=== PATIENT | male | born 2005 | race Caucasian/White ===

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

== ENCOUNTER 2024-12-30 13:05 | Inpatient (IN) | payer OTHER, SELFPAY ==
--- NOTE | ~2024-12-30 | CT_ITS ---
CLINICAL HISTORY: left spontaneous pneumothorax, persistent leak CT chest with contrast Comparison: Chest x-rays 01/02/2025, 01/01/2025 Findings: Small left apical pneumothorax noted. Medial left apical chest tube. Left upper and lower lobe ground-glass consolidation. Differential includes pneumonia as well as contusion. No significant parenchymal abnormality on right. No significant mediastinal adenopathy. No significant free pleural fluid. No significant focal bony abnormalities. Impression: Small left apical pneumothorax Ground-glass left upper and lower lobe consolidation Question pneumonia versus contusion, please correlate This document has been electronically signed by: Jesse Dowd MD on 01/02/2025 22:06:24
--- NOTE | ~2024-12-30 | XR_ITS ---
EXAMINATION: XR CHEST 1 VIEW HISTORY: f/u left blebectomy COMPARISON: Comparison is made with the prior examination dated 01/03/2025. FINDINGS: Two AP portable views of the chest performed at 7:20 AM are submitted. A left-sided chest tube is unchanged in position. The previously seen left pneumothorax is smaller. Postsurgical changes are again noted at the left lung apex and at the left lung base. There has been improved aeration of the left midlung zone since the prior study . The right lung is clear. No pleural effusion. The heart is normal in size. The bones are intact. XR/XR chest 1V IMPRESSION: Left chest tube unchanged in position. Interval decrease in size of the left pneumothorax. Improved aeration of the left midlung zone. Electronically signed by: Tone Waters MD 01/04/2025 07:53 AM EDT
--- NOTE | ~2024-12-30 | XR_ITS ---
EXAMINATION: XR CHEST 1 VIEW HISTORY: f/u left pneumothorax COMPARISON: Comparison is made with the prior examination dated 12/31/2024. FINDINGS: A single AP portable view of the chest performed at 8:32 AM is submitted. A left-sided chest tube is again seen in place. There is a trace left apical pneumothorax without change. There is patchy groundglass opacity in the central left lung which may be inflammatory in nature. The right lung is clear. The heart is normal in size. The bones are intact. XR/XR chest 1V IMPRESSION: 1. Left chest tube in place. Tiny left apical pneumothorax without change. 2. Patchy groundglass opacity in the central left lung which may be inflammatory in nature. Electronically signed by: Tnoe Waters MD 01/01/2025 09:02 AM EDT
--- NOTE | ~2024-12-30 | XR_ITS ---
EXAMINATION: XR CHEST 1 VIEW HISTORY: f/u left pneumo on water seal COMPARISON: Comparison is made with the prior examination performed earlier in the day at 8:32 AM. FINDINGS: A single AP portable view of the chest performed at 12:33 PM is submitted. A left-sided chest tube is again seen in place. There is a small left apical pneumothorax which is slightly larger than on the prior study. Patchy airspace opacity in the left midlung zone suspicious for pneumonia. There is no pleural effusion, pneumothorax, or pulmonary vascular congestion. The heart is normal in size. The bones are intact. XR/XR chest 1V IMPRESSION: 1. Left chest tube in place. Small left apical pneumothorax, slightly larger than on the prior study. 2. Airspace opacity in the left midlung zone, suspicious for pneumonia. Electronically signed by: Tone Waters MD 01/01/2025 01:08 PM EDT
--- NOTE | ~2024-12-30 | XR_ITS ---
CLINICAL HISTORY: Left pneumothorax 1 view chest x-ray Comparison: 12/30/2024 Findings: Left chest tube remains in position with near-complete resolution of pneumothorax. The exam is otherwise unchanged. IMPRESSION: 1. Improved appearance of the chest. This document has been electronically signed by: Quoc Gary MD on 12/31/2024 06:24:37
--- NOTE | ~2024-12-30 | XR_ITS ---
CLINICAL HISTORY: pigtail placement, eval for placement Single view of the chest. COMPARISON: XR chest dated 12/30/24 at 13:36 EDT FINDINGS: Interval insertion of the pigtail catheter along the left midlung. There has been re-expansion of the left lung with now small left apical pneumothorax. Areas of increased density within the left lung likely represent re-expansion edema. Right lung is clear. Small calcified granulomas present. No pleural effusion. No fracture identified. IMPRESSION: 1. Small residual left apical pneumothorax with pigtail catheter now in place. 2. Opacification within the left mid and lower lung favored to represent re-expansion edema. This document has been electronically signed by: Ajith Reddy MD on 12/30/2024 16:56:47
--- NOTE | ~2024-12-30 | XR_ITS ---
EXAMINATION: XR CHEST 1 VIEW HISTORY: f/u left blebectomy COMPARISON: Comparison is made with the prior examination dated 01/02/2025. FINDINGS: A single AP portable view of the chest performed at 10:02 AM is submitted. The previously seen side of pigtail catheter has been replaced with a large bore chest tube. There is a small to moderate left pneumothorax. A suture line is seen at the left lung apex. There are surgical clips at the lung base. Patchy airspace opacity is again seen in the left midlung zone. The right lung is clear. There is no pleural effusion. The heart is normal in size. The bones are intact. XR/XR chest 1V IMPRESSION: Postsurgical changes in the left lung with a large bore chest tube in place. Small to moderate pneumothorax. Patchy airspace opacity in the left midlung zone persists and may represent pneumonia. Electronically signed by: Tone Waters MD 01/03/2025 10:23 AM EDT
--- NOTE | ~2024-12-30 | XR_ITS ---
CLINICAL HISTORY: chest pain Two views of the chest. COMPARISON: None FINDINGS: Large left pneumothorax with complete collapse in the left lung. No midline shift. Normal heart size. No right-sided pleural effusion. No right-sided consolidation. No fracture identified. IMPRESSION: 1. Large left pneumothorax with complete collapse of the left lung. No midline shift. This document has been electronically signed by: Ajith Reddy MD on 12/30/2024 14:54:29
--- NOTE | ~2024-12-30 | XR_ITS ---
EXAMINATION: XR CHEST CLINICAL INFORMATION: s/p chest tube removal COMPARISON: Earlier same day at 7:20 AM. TECHNIQUE: AP view of the chest was obtained. FINDINGS: Left chest tube has been removed. The cardiac, hilar, and mediastinal contours are normal. Surgical clips project over the left heart border. Moderate to large size left pneumothorax after chest tube removal. Apical pleural to pleural radiation measures approximately 6.6 cm. Stable line seen in the partially collapsed left lung apex. Right lung is clear without pneumothorax. No effusion seen. Minimal left chest wall subcutaneous emphysema. XR/XR chest 1V IMPRESSION: 1. Left chest tube has been removed. There is a new moderate to large sized left pneumothorax. Findings discussed with Aminata Jackson PA-C via secure text with findings understood at 10:46 AM, 01/04/2025. Electronically signed by: Adolfo Villaseñor MD 01/04/2025 10:47 AM EDT
--- NOTE | ~2024-12-30 | XR_ITS ---
CLINICAL HISTORY: f u left pneumothorax 1 view chest x-ray Comparison: CR/SR - XR CHEST 1V - 01/01/25 12:33 EDT Findings: Small left apical pneumothorax is similar to prior exam. Left perihilar opacities are noted, similar to prior exam. Left chest tube is unchanged in position. The heart is normal in size. No acute fracture. IMPRESSION: 1. Small left apical pneumothorax and left perihilar opacities, similar to prior exam. This document has been electronically signed by: Nava Donahue on 01/02/2025 07:54:19
--- NOTE | ~2024-12-30 | XR_ITS ---
EXAMINATION: XR CHEST CLINICAL INFORMATION: f/u left pneumothorax COMPARISON: Earlier same day. TECHNIQUE: Frontal view of the chest was obtained. FINDINGS: Slightly smaller medium to large size left pneumothorax with apical pleural separation of 5.6 cm (previously 6.6 cm). Right lung remains clear. Remainder of the exam is unchanged. XR/XR chest 1V IMPRESSION: Slightly smaller moderate to large sized left pneumothorax. Electronically signed by: Adolfo Villaseñor MD 01/04/2025 02:32 PM EDT
--- NOTE | 2024-12-30 13:07 | ECG_ITS ---
Test Reason : chest pain Blood Pressure : */* mmHG Vent. Rate : 101 BPM Atrial Rate : 101 BPM P-R Int : 140 ms QRS Dur : 82 ms QT Int : 326 ms P-R-T Axes : 76 83 64 degrees QTcB Int : 422 ms Sinus tachycardia Right atrial enlargement Borderline ECG No previous ECGs available Referred By: Generic ED Physician Electronically Signed By: CHACHO HAMM MD
--- NOTE | 2024-12-30 13:28 | ED_ITS ---
HPI - General Adult General Chief complaint: Chest Pain Stated complaint: chest pain to shoulder Time Seen by Provider: 12/30/24 13:49 Source: patient and family Mode of arrival: ambulatory Limitations: no limitations History of Present Illness ED Provider: Whitney Owen APRN HPI narrative: This is a 19-year-old male with no known medical history who presents to the ER with complaints of sudden onset left-sided chest pain with radiation to his left shoulder since 16:00 yesterday. Patient reports he was talking to his girlfriend and got up to walk and felt sudden pain in his left chest. Pain has continued since yesterday. No shortness of breath. No cough or fever. No history of same. Patient does smoke cigarettes/vape daily. Related Data Home Medications ?Medication ?Instructions ?Recorded ?Confirmed No Known Home Meds 12/30/24 12/30/24 Allergies Allergy/AdvReac Type Severity Reaction Status Date / Time No Known Allergies Allergy Verified 12/30/24 13:31 Review of Systems 2 Review of Systems: Yes all other systems are reviewed and are negative Constitutional: Constitutional: Reports no additional constitutional complaints, Denies body ache(s), Denies chills, Denies fever(s), Denies headache(s) and Denies weakness Eyes: Eyes: Reports no additional eye complaints and Denies change in vision ENT: Reports system reviewed and no additional complaints, except as documented, Denies dizziness, Denies headache(s), Denies nasal congestion, Denies nasal discharge and Denies neck pain Cardiovascular: Cardiovascular: Reports no additional cardiovascular complaints, Reports chest pain, Denies leg edema and Denies dyspnea Respiratory: Respiratory: Reports no additional respiratory complaints, Denies cough and Denies dyspnea Gastrointestinal: Gastrointestinal: Reports no additional gastrointestinal complaints, Denies abdominal pain, Denies diarrhea, Denies nausea and Denies vomiting Genitourinary: Genitourinary: Denies urinary incontinence Musculoskeletal: Musculoskeletal: Reports no additional musculoskeletal complaints, Denies back pain, Denies arthralgias, Denies joint swelling, Denies neck pain, Denies numbness and Denies tingling Integumentary/Breasts: Skin/Breast: Reports system reviewed and no additional complaints, except as docu and Denies rash Neurologic: Reports system reviewed and no additional complaints, except as documented, Denies Abnormal speech present, Denies dizziness, Denies headache(s), Denies numbness, Denies tingling and Denies weakness [facility] Past Medical History Attestation statement: The following information was validated with the patient. Source: old records reviewed and nursing notes reviewed Medical History No known health problems Family History Family History Mother Hypertension No family history of mental disorder Father No family history of mental disorder Diabetes Maternal Grandfather Lymphoma No family history of mental disorder Social History Social History Housing: House Patient Tobacco Use Status: Never used Tobacco Smoked in Last 30 Days: No e-Cigarette/Vaping Use: Never Used Use of substances other than those prescribed or required for medical reasons: Yes Substance Use Type: Marijuana Substance Use Frequency: Daily Last Used Substance: Hours (ago) Any prior treatment program specific to substance use: No Advance Directives: No Advance Directives Information Provided: Yes service: No Current occupational status: employed Current occupation: Construction Current occupational exposures/hazards: Yes Cognitive needs: No Hearing needs: No Vision needs: No Physical Exam ED Vital Signs: Vital Signs - 24 hr 12/30/24 13:29 Temperature 98.5 F Pulse Rate 94 Respiratory Rate 18 Blood Pressure 127/74 Pulse Oximetry 93 Oxygen Delivery Method Room Air BMI result Body Mass Index 17.5 Const General: cooperative, healthy appearing, comfortable and no acute distress Orientation/consciousness: patient oriented x3 Limitations: no limitations HENMT Head: Yes normal to inspection Ears: hearing grossly normal bilaterally and TM's normal bilaterally General nose exam: Normal external nose present Face and sinus: Yes normal facial exam Mouth: Normal oral and palatal mucosa present Throat: Yes posterior oropharynx normal, Yes tonsils normal and Yes uvula midline Eyes General: appearance normal, both eyes and all related structures Pupils: Equal, round and reactive pupils present Neck Neck: Yes normal visual inspection, Yes full ROM, Yes no lymphadenopathy and Yes no meningeal signs Chest Chest palpation & inspection: normal inspection of the chest Resp Other: right clear, left absent Effort & Inspection: normal respiratory effort Cardio Rate: regular rate Rhythm: regular rhythm Peripheral pulses: Peripheral pulses 2+ throughout GI Inspection: Yes normal to inspection Palpation (GI): Soft to palpation and nontender Auscultation: normal bowel sounds Back/Spine/Pelvis Thoracic/Lumbar Spine: thoracic and lumbar spine normal to inspection Skin General skin exam: no rashes or lesions noted Neuro General: patient oriented x3, no meningeal signs, no focal motor deficits and normal sensation to monofilament Cranial nerves: Yes Equal, round and reactive pupils present Cognition (Neuro): normal cognition Speech: No Abnormal speech present Gait exam (Neuro): Normal gait present Motor exam (neuro): 5/5 motor strength present throughout Extrem General: Yes normal to inspection Course Course Course Narrative: This is a rapid medical exam performed by Ana Bass NP: Additional HPI, ROS, PE not included below will be deferred to primary provider. 12/30/24 13:29 Patient is a 19-year-old male with history of smoker, anxiety and depression presenting to the ED with complaint of sudden onset chest pain radiating to left arm as well as associated difficulty concentrating. Pain with inspiration. Denies any recent systemic symptoms. Rates current pain at 3/10. Plan: EKG, labs Reevaluation(s) Reevaluation #1: [id number]-Dr Sanchez arrived for pigtail placement. See procedure note by Dr. Sanchez. He will admit the patient Medications Administered Discontinued Medications Generic Name Dose Route Start Last Admin Trade Name Freq PRN Reason Stop Dose Admin Hydromorphone HCl 0.5 mg 12/30/24 14:39 12/30/24 14:49 Hydromorphone Hcl 1 Mg/Ml Syringe IVPUSH 12/30/24 14:40 0.5 mg ONCE ONE Administration Protocol Sodium Chloride 1,000 mls @ 999 mls/hr 12/30/24 14:05 12/30/24 15:20 Ns IV 12/30/24 15:05 Infused .Q1H1M STA Infusion Lidocaine HCl 20 ml 12/30/24 14:39 12/30/24 15:21 Lidocaine Hcl 1 % Mpf 5 Ml Vial SUBCUT 12/30/24 14:40 20 ml ONCE ONE Administration Lidocaine HCl 20 ml 12/30/24 14:39 12/30/24 15:21 Lidocaine Hcl 1 % Mpf 5 Ml Vial SUBCUT 12/30/24 14:40 20 ml ONCE ONE Administration Lorazepam 1 mg 12/30/24 14:05 12/30/24 14:14 Lorazepam 2 Mg/Ml Vial IVPUSH 12/30/24 14:06 1 mg ONCE ONE Administration Medical Decision Making Medical Decision Making [facility] Narrative: This is a 19-year-old male with no known medical history who presents to the ER with complaints of sudden onset left-sided chest pain with radiation to his left shoulder since 16:00 yesterday. Patient reports he was talking to his girlfriend and got up to walk and felt sudden pain in his left chest. Pain has continued since yesterday. No shortness of breath. No cough or fever. No history of same. Patient does smoke cigarettes/vape daily. Absent BS left side Right clear RA saturation 93% Will obtain labs, EKG, CXR, viral testing Differential Diagnosis Differential Diagnoses: The differential diagnosis associated with the presentation includes PTX Low suspician for PNA, ACS, dissection Admission/Observation Consideration of admission/observation: Escalation of care including admission/observation considered See course of care Consult Healthcare Provider Management of the patient was discussed with: Forestry Fire Aide Liane LESLIE-Spoke to thoracic (Dr Sanchez) at 1405. He will come in to see patient Lab Data [facility] Lab Attestation statement: I reviewed the patient's lab results. 12/30/24 14:08 12/30/24 14:08 Labs: Lab Results 12/30/24 12/30/24 Range/Units 14:07 14:08 WBC 10.4 (4.8-10.8) X10*3/uL RBC 5.41 (4.60-5.80) X10*6/uL Hgb 16.4 (14.0-18.0) g/dl Hct 46.7 (42.0-52.0) % MCV 86.3 (80.0-98.0) fL MCH 30.3 (27.0-33.0) pg MCHC 35.1 (31.0-36.0) g/dl RDW 12.3 (11.0-16.0) % Plt Count 250 (160-400) X10*3/uL MPV 9.2 L (9.4-12.4) fL Immature Gran % (Auto) 0.2 (0.0-0.4) % Neut % (Auto) 81.4 H (45-73) % Lymph % (Auto) 12.0 L (20-40) % Barrow % (Auto) 6.2 (2-11) % Eos % (Auto) 0.1 (0-4) % Baso % (Auto) 0.1 (0-2) % Lymph # (Auto) 1.3 (1.2-4.9) X10*3/uL Barrow # (Auto) 0.7 (0.1-1.2) X10*3/uL Eos # (Auto) 0.0 (0.0-0.4) X10*3/uL Baso # (Auto) 0.0 (0.0-0.2) X10*3/uL Abs Immat Gran (auto) 0.02 (0.00-0.03) X10*3/uL Absolute Neuts (auto) 8.5 H (2.0-8.3) x10*3/uL Absolute Nucleated RBC 0.000 (0.0-0.012) X10*3/uL Nucleated RBC % (auto) 0.0 (0.0-0.2) /100WBC PT 13.4 H (10.9-12.4) SEC INR 1.2 H (0.9-1.1) Sodium 142 (135-145) mmol/L Potassium 4.0 (3.3-5.1) mmol/L Chloride 107 (96-108) mmol/L Carbon Dioxide 21 L (22-29) mmol/L Anion Gap 18 (12-20) BUN 13 (9-16) mg/dL Creatinine 0.88 (0.5-1.4) mg/dL Estim Creat Clear Calc 104.9 Estimated GFR > 60 Random Glucose 133 H (60-115) mg/dL Calcium 9.8 (8.4-10.2) mg/dL Total Bilirubin 1.1 H (0.0-1.0) mg/dL AST 25 (5-37) U/L ALT 20 (0-40) U/L Alkaline Phosphatase 71 (39-117) U/L Troponin I High Sens < 2.7 (<3.5-35.0) ng/L Total Protein 7.5 (6.5-8.0) g/dL Albumin 4.7 (3.5-5.0) g/dL Influenza Type A (PCR) NEGATIVE (Negative) Influenza Type B (PCR) NEGATIVE (Negative) RSV RNA Qual (PCR) NEGATIVE (Negative) SARS-CoV-2 RNA (RT-PCR) NEGATIVE (Negative) Independent Interpretation I performed an independent interpretation of an: EKG and Plain X-Ray Interpretation: I independently viewed the EKG which shows sinus tachycardia with a rate of 101, normal NV, normal QRS, normal QT I independently viewed the x-ray and agree with the radiology report Radiology Impression Discussion of test interpretation with radiology: I have reviewed the radiologist's reading. Radiologist Impression: [address] [address] XRay Report Signed with Addenda Patient: Adal Peng MR#: [id number] : 2005 Acct:[id number] Age/Sex: 19 / M ADM Date: 12/30/24 Loc: .ED Attending Dr: Ordering Physician: Nettie Bass NP Date of Service: 12/30/24 Procedure(s): XR chest 2V Accession Number(s): [id number] cc: Nettie Bass BURRER MARKER [employer]LE; Concetta Chirinos TECHNOLOGY SALES REPRESENTATIVE~ ADDENDUMThis document has been electronically signed by: Ajith Reddy MD on 12/30/2024 14:54:29 ADDENDUM: This report was discussed with RUSTY HOPKINS / ELIJAH on Dec 30, 2024 14:57:00 EDT. This document has been electronically signed by: Jade Santos on 12/30/2024 14:57:58 Addendum Dictated By: Ajith Reddy MD Addendum Signed By: <Electronically signed by Ajith Reddy MD in OV> 12/30/24 145 Addendum Cosigned By: DD/ TD/TT: 12/30/24 CLINICAL HISTORY: chest pain Two views of the chest. COMPARISON: None FINDINGS: Large left pneumothorax with complete collapse in the left lung. No midline shift. Normal heart size. No right-sided pleural effusion. No right-sided consolidation. No fracture identified. IMPRESSION: 1. Large left pneumothorax with complete collapse of the left lung. No midline shift. Critical Care Time Critical Care Time Critical Care Time: Yes Total Critical Care Time: 60 Attestation: Large left pneumothorax requiring consultation with specialists, admission for further management as well as pigtail placement, discussion with family at bedside Discharge Plan Discharge Clinical Impression: Pneumothorax Patient Disposition: Admitted As Inpatient Print Language: [place]ican
[2024-12-30 13:29] VITALS: BP 127/74; PULSE 94; RESP 18; TEMP 36.9; O2SAT 93; BMI 17.5
--- OUTSIDE RECORDS SUMMARY | 2024-12-30 13:54 | XMS_ITS | Encounter Summary ---
Author Organization [facility] Address [address] [place] [address] Phone Care Team Providers Care Pole Lift Operator Name Role Phone Quoc Thomas MD Primary Care Provider [phone] Encounter Details Date Type Department Care Team (Late st Contact Info) Description 08/23/2016 Documentation [facility] [place] Family Medicine [address] [place], [place] [id number] Family Medicine, Physician [address] [place], [place] [address] Social History Tobacco Use Types Packs/Day Years Used Date Smoking Tobacco: Never Assessed Sex and Gender Information Value Date Recorded Sex Assigned at Male 12/03/2020 1:50 PM EDT Legal Sex Male 4:40 PM EDT Gender Identity Male 12/03/2020 1:50 PM EDT Sexual Orientation Straight 12/03/2020 1: 50 PM EDT documented as of this encounter Plan of Treatment Not on file documented as of this encounter Visit Diagnoses Not on filedocumented in this encounter Care Teams Pole Lift Operator Relationship Specialty Start Date End Date Quoc Thomas MD [address] [place] [address] [place] [address] PCP - General Pediatrics 05/18/18 11/15/23 documented as of this encounter
--- OUTSIDE RECORDS SUMMARY | 2024-12-30 13:54 | XMS_ITS | Encounter Summary ---
Author Organization [facility] Address [address] [place] [address] Phone Care Team Providers Care Refrigeration Person Name Role Phone Quoc Thomas MD Primary Care Provider [phone] Encounter Details Date Type Department Care Team (Late st Contact Info) Description 08/23/2016 Documentation [facility] [place] [address] [place], [place] [phone] Family Medicine, Physician [address] [place], [place] [address] Social History Tobacco Use Types Packs/Day Years [...] on filedocumented in this encounter Care Teams Refrigeration Person Relationship Specialty Start Date End Date Quoc Thomas MD [address] [place] [address] [place] [address] PCP - General Pediatrics 05/18/18 11/15/23 documented as of this encounter
--- OUTSIDE RECORDS SUMMARY | 2024-12-30 13:54 | XMS_ITS | Encounter Summary ---
Author Organization [facility] Address [address] [place] [address] Phone Care Team Providers Care Studio Operations Engineer In Charge Name Role Phone Quoc Thomas MD Primary Care Provider Encounter Details Date Type Department Care Team (Late st Contact Info) Description 05/05/2017 Conversion Encounter [facility] [place] [address] [place] [address] Social History Tobacco Use Types Packs/Day Years [...] on filedocumented in this encounter Care Teams Studio Operations Engineer In Charge Relationship Specialty Start Date End Date Quoc Thomas MD [address] [place] [address] PCP - General Pediatrics 05/18/18 11/15/23 documented as of this encounter
--- OUTSIDE RECORDS SUMMARY | 2024-12-30 13:54 | XMS_ITS | Encounter Summary ---
Author Organization [facility] Address [address] [place] [address] Phone Care Team Providers Care Pencil Maker Name Role Phone Quoc Thomas MD Primary Care Provider Encounter Details Date Type Department Care Team (Late st Contact Info) Description 05/01/2015 Documentation [facility] [place] Family Medicine [address] [place], [place] [phone] Family Medicine, Physician [address] [place], [place] [address] Social History Tobacco Use Types Packs/Day Years [...] on filedocumented in this encounter Care Teams Pencil Maker Relationship Specialty Start Date End Date Quoc Thomas MD [address] [place] [address] [place] [address] PCP - General Pediatrics 05/18/18 11/15/23 documented as of this encounter
--- OUTSIDE RECORDS SUMMARY | 2024-12-30 13:54 | XMS_ITS | Encounter Summary ---
Author Organization [facility] Address [address] [place] [address] Phone Care Team Providers Care Peanut Grader Name Role Phone Quoc Thomas MD Primary Care Provider [phone] Encounter Details Date Type Department Care Team (Late st Contact Info) Description 02/03/2012 Documentation [facility] [place] Family Medicine [address] [place], [place] [phone] Family Medicine, Physician [address] [place], [place] [address] Social History Tobacco Use Types Packs/Day Years [...] on filedocumented in this encounter Care Teams Peanut Grader Relationship Specialty Start Date End Date Quoc Thomas MD [address] [place] [address] [place] [address] PCP - General Pediatrics 05/18/18 11/15/23 documented as of this encounter
--- OUTSIDE RECORDS SUMMARY | 2024-12-30 13:54 | XMS_ITS | Encounter Summary ---
Author Organization [facility] Address [address] [place] [address] Phone Care Team Providers Care Bobj Developer Name Role Phone Quoc Thomas MD Primary Care Provider [phone] Encounter Details Date Type Department Care Team (Late st Contact Info) Description 02/03/2012 Documentation [facility] [place] Family Medicine [address] [place], [place] [phone] Family Medicine, Physician [address] [place], [place] [address] Social History Tobacco Use Types Packs/Day Years [...] on filedocumented in this encounter Care Teams Bobj Developer Relationship Specialty Start Date End Date Quoc Thomas MD [address] [place] [address] [place] [address] PCP - General Pediatrics 05/18/18 11/15/23 documented as of this encounter
--- OUTSIDE RECORDS SUMMARY | 2024-12-30 13:54 | XMS_ITS | Encounter Summary ---
Author Organization [facility] Address [address] [place] [address] Phone Care Team Providers Care Program Specialist Name Role Phone Quoc Thomas MD Primary Care Provider [phone] Encounter Details Date Type Department Care Team (Late st Contact Info) Description 02/03/2012 Documentation [facility] [place] Family Medicine [address] [place], [place] [phone] Family Medicine, Physician [address] [place], [place] [address] Social History Tobacco Use Types Packs/Day Years [...] on filedocumented in this encounter Care Teams Program Specialist Relationship Specialty Start Date End Date Quoc Thomas MD [address] [place] [address] [place] [address] PCP - General Pediatrics 05/18/18 11/15/23 documented as of this encounter
--- OUTSIDE RECORDS SUMMARY | 2024-12-30 13:54 | XMS_ITS | Clinical Summary ---
Author Organization [facility] Address [address] [place] [address] Phone Care Team Providers Care Plant Mechanic Name Role Phone Unavailable Primary Care Provider Unavailabl e Allergies No known active allergies Medications No known medications Active Problems No known active problems Immunizations Immunization Administration Dates Next Due DTaP 5 02/12/2009, 6,2004,08/05,2004 HPV Vaccine 9 Valent 12/03/2020,08/20/2016 Hep A, ped/adol 08/20/2016,04/30/2015 Hep B, ped/adol 01/11/2005,2004,2004 Hib (HbOC) 08/06/2005, 5,2004,06/03 IPV 02/12/2009, 5,2004,06/03 Influenza, injectable, quadr ivalent, preservative free 12/03/2020 Influenza, injectable, trivalent 06/20/2009 MMR 02/12/2009,05/06/2005 Meningococcal Conj (Menactra) MCV4P 12/03/2020,1 10/21/2015 Pneumococcal Conjugate 08/06/2005,2004,2004,06/03 Tdap 08/20/2016 Varicella 02/12/2009,05/06/2005 Family History Relation Name Status Comments Brother 1 Alive Brother: Alive and well, Bipolar disorder, Alive and well, Alive and well Brother 2 Alive Brother: Alive and well, Bipolar disorder, Alive and well, Alive and well Brother 3 Alive Brother: Alive and well, Bipolar disorder, Alive and well, Alive and well Father Alive Father: D M Typ e I Mother Alive Mother: Alive a nd well Social History Tobacco Use Types Packs/Day Years Used Date Smoking Tobacco: Never Assessed Hunger/Food Answer Date Recorded In the last 12 months, did y ou or your family ever eat less than you felt you should because there wasn't enough money for food? No 12/03/2020 Stable Housing Answer Date Recorded Are you worried that in the next 2 months you may not have stable housing? No 12/03/2020 Transportation Concerns Answer Date Rec orded In the last 12 months, have you or your family ever had to go without healthcare because you didn't have a way to get there? No 12/03/2020 Hazards in Home Answer Date Recorded Think about the place you li ve. Do you have problems with any of the following? Pests (mice or roaches), mold, no/not working smoke detectors, water leaks, no window guards. No 2020 Financing Utilities Answer Date Recorde d In the last 12 months, has t he electric, gas, oil, or water company threatened to shut off your services in your home? No 12/03/2020 Safety at Home Answer Date Recorded Are you or your family worried about feeling saf e in your home? No 12/03/2020 Outside Support Answer Date Recorded Do you feel that you need mo re support from other people or programs to help you care for yourself or your family? No 12/03/2020 Understanding Health Concerns Answer Da te Recorded Do you need help understandi ng your or your child's healthcare needs (diagnosis, medications, plan, etc.)? No 12/03/2020 Financing Health Concerns Answer Date R ecorded In the last 12 months, was t here a time when your child needed to see a doctor or get medications or supplies but could not because of cost? No 12/03/2020 Missing School or Work Answer Date Hardik rded Did you or your child miss s chool or work because of a health problem that could have been avoided? No 12/03/2020 Sex and Gender Information Value Date Recorded Sex Assigned at Male 12/03/2020 1:50 PM EDT Legal Sex Male 4:40 PM EDT Gender Identity Male 12/03/2020 1:50 PM EDT Sexual Orientation Straight 12/03/2020 1: 50 PM EDT Last Filed Vital Signs Vital Sign Reading Time Taken Comments Blood Pressure 128/78 12/03/2020 1:29 PM EDT Pulse 85 12/03/2020 1:29 PM EDT Temperature 36.7 ??C (98.1 ??F) 12/03/2020 1:29 PM ED T Respiratory Rate - - Oxygen Saturation - - Inhaled Oxygen Concentration - - Weight 55.8 kg (123 lb) 12/03/2020 1:29 PM EDT Height 175.9 cm (5' 9.25 ) 12/03/2020 1:29 PM ED T Body Mass Index 18.03 12/03/2020 1:29 PM EDT Plan of Treatment Health Maintenance Due Date Last Done Comments Men B Vaccine (1 of 2 - Standard) 2020 Influenza Vaccines (#1) 2024 12/04/19, 09/26/2020, 06/20/2009 COVID-19 Vaccine (3 - 2023-2 5 season) 2024 03/02/2021, 02/08/2021 DTaP,Tdap,and Td Vaccines (7 - Td or Tdap) 08/20/2026 08/20/2016, 02/12/2009, 04/01/2006, Additional history exists Hepatitis B Vaccines Completed 01/11/2005, 2004, 2004 HIB Vaccines Completed 08/06/2005, 09/20, 2004, Additional history exists Pneumococcal Vaccine Completed 08/06/2005, 2004, 2004, Additional history exists IPV Vaccines Completed 02/12/2009, 12/19, 2004, Additional history exists MMR Vaccines Completed 02/12/2009, 05/06/2005 Varicella Vaccines Completed 02/12/2009, 05/06/2005 Hepatitis A Vaccines Completed 08/20/2016, 04/30/20 15 HPV Vaccines Completed 12/03/2020, 08/20/2016 Meningococcal Vaccine Completed 12/03/2020, 016 Insurance [place] [employer] [facility]
[2024-12-30 14:11] LABS: MANUAL DIFF FLAG NO
[2024-12-30] MEDS: 0.9 % Sodium Chloride 1,000 ML 999 ML IV (14:14)
[2024-12-30] MEDS: LORazepam 2 MG/ML VIAL 1 MG IVPUSH (14:14)
[2024-12-30 14:16] LABS: Basophils Percent Auto 0.1 % (0-2); Eosinophils Percent Auto 0.1 % (0-4); Hematocrit 46.7 % (42.0-52.0); Hemoglobin 16.4 g/dl (14.0-18.0); Imm Gran Abs Auto 0.02 X10*3/uL (0.00-0.03); Imm Gran Pct Auto 0.2 % (0.0-0.4); Lymphocytes Absolute Auto 1.3 X10*3/uL (1.2-4.9); Mean Corpuscular HGB Conc 35.1 g/dl (31.0-36.0); Mean Corpuscular Hemoglobin 30.3 pg (27.0-33.0); Mean Corpuscular Volume 86.3 fL (80.0-98.0); Mean Platelet Volume 9.2 fL (9.4-12.4); Monocytes Absolute Auto 0.7 X10*3/uL (0.1-1.2); Monocytes Percent Auto 6.2 % (2-11); Neutrophils Absolute Auto 8.5 x10*3/uL (2.0-8.3); Neutrophils Percent Auto 81.4 % (45-73); Platelet Count 250 X10*3/uL (160-400); Red Blood Count 5.41 X10*6/uL (4.60-5.80); Red Cell Distribution Width 12.3 % (11.0-16.0); White Blood Count 10.4 X10*3/uL (4.8-10.8)
[2024-12-30 14:28] LABS: INTERNATIONAL NORM RATIO 1.2 (0.9-1.1); Prothrombin Time 13.4 SEC (10.9-12.4)
[2024-12-30 14:32] LABS: Alanine Aminotransferase 20 U/L (0-40); Albumin Level 4.7 g/dL (3.5-5.0); Alkaline Phosphatase 71 U/L (39-117); Anion Gap 18 (12-20); Aspartate Amino Transferase 25 U/L (5-37); Bilirubin Total 1.1 mg/dL (0.0-1.0); Blood Urea Nitrogen 13 mg/dL (9-16); Calcium 9.8 mg/dL (8.4-10.2); Carbon Dioxide 21 mmol/L (22-29); Chloride 107 mmol/L (96-108); Creatinine Clr Calc Pharmacy 104.9; Estimated Glomerular Filt Rate > 60; Glucose Random 133 mg/dL (60-115); Sodium 142 mmol/L (135-145); Total Protein 7.5 g/dL (6.5-8.0)
[2024-12-30] MEDS: HYDROmorphone HCl 1 MG/ML SYRINGE 0.5 MG IVPUSH (14:49)
[2024-12-30 14:52] LABS: Influenza A PCR NEGATIVE (Negative); Influenza B PCR NEGATIVE (Negative); Resp Syncy Virus RNA Qual PCR NEGATIVE (Negative); SARS COV2 PCR INHOUSE NEGATIVE (Negative)
[2024-12-30 14:56] LABS: Troponin-I High Sensitivity < 2.7 ng/L (<3.5-35.0)
--- NOTE | 2024-12-30 15:20 | PHA.MEDREC ---
Addendum entered by Eneida Gonzalez RPh 12/30/24 16:24: med rec reviewed by marti Original Note: Pharmacy Consult ? Medication Reconciliation Pharmacy has completed the medication reconciliation. Spoke with patient to confirm. He took advil and aspirin for current symptoms but does not take regularly.
[2024-12-30] MEDS: Lidocaine HCl 1 % MPF 5 ML VIAL 20 ML SUBCUT ×2 (15:21)
--- NOTE | 2024-12-30 15:26 | HO.THORH&P ---
History of Present Illness History of Present Illness Date of Service: 12/30/24 Chief complaint: chest pain to shoulder Narrative: Adal Peng is a 19 year old male who presents here with a roughly 2 day history of feeling unwell, left chest pain, shortness of breath. Patient presents to the emergency department because of progression of symptoms and on workup was found to have a significant left pneumothorax. Patient has never had this before. Does have a smoking history. Chart was reviewed and patient evaluated. Chest x-ray demonstrates significant left pneumothorax PMFSH Past Medical History Medical History No known health problems Family History Family History Mother Hypertension No family history of mental disorder Father No family history of mental disorder Diabetes Maternal Grandfather Lymphoma No family history of mental disorder Social History Social History Housing: House Patient Tobacco Use Status: Never used Tobacco Smoked in Last 30 Days: No e-Cigarette/Vaping Use: Never Used Use of substances other than those prescribed or required for medical reasons: Yes Substance Use Type: Marijuana Substance Use Frequency: Daily Last Used Substance: Hours (ago) Any prior treatment program specific to substance use: No Advance Directives: No Advance Directives Information Provided: Yes service: No Current occupational status: employed Current occupation: Construction Current occupational exposures/hazards: Yes Cognitive needs: No Hearing needs: No Vision needs: No Meds Allergies Allergy/AdvReac Type Severity Reaction Status Date / Time No Known Allergies Allergy Verified 12/30/24 13:31 Home Medications ?Medication ?Instructions ?Recorded ?Confirmed ?Last Taken ?Type No Known Home Meds 12/30/24 12/30/24 Unknown History Physical Exam Vital Signs: Vital Signs: Last Vital Signs Temp 98.5 F 12/30/24 13:29 Pulse 94 12/30/24 13:29 Resp 18 12/30/24 13:29 BP 127/74 12/30/24 13:29 Pulse Ox 93 12/30/24 13:29 O2 Del Method Room Air 12/30/24 13:29 BMI result Body Mass Index 17.5 Const: Other: Tall slender thin male in modest respiratory distress Chest: Other: Right breast sounds clear. No breath sounds left . Hyper-resonant. Results Results Labs: Short CBC 12/30/24 Range/Units 14:08 WBC 10.4 (4.8-10.8) X10*3/uL Hgb 16.4 (14.0-18.0) g/dl Hct 46.7 (42.0-52.0) % Plt Count 250 (160-400) X10*3/uL BMP 12/30/24 14:08 Sodium 142 Potassium 4.0 Chloride 107 Carbon Dioxide 21 L BUN 13 Creatinine 0.88 Calcium 9.8 Liver Function 12/30/24 Range/Units 14:08 Total Bilirubin 1.1 H (0.0-1.0) mg/dL AST 25 (5-37) U/L ALT 20 (0-40) U/L Alkaline Phosphatase 71 (39-117) U/L Albumin 4.7 (3.5-5.0) g/dL Assessment and Plan (1) Pneumothorax: Status: Acute Plan Patient is to undergo emergent left tube thoracostomy placement. Admitted to surgical service. Quality Stroke Does the patient have a stroke diagnosis?: No VTE Prior VTE?: No VTE Risk Level:: Surgical - low VTE Device Contraindication: N/A - Device Ordered VTE Drug Contraindication: Treatment Not Indicated Procedures Date of Service Date of Service: 12/30/24 Chest Tube Chest Tube 1: Chest tube location: Anterior Chest Size of tube: 14 Chest tube procedure: Yes betadine prep and sterile drapes applied Tube sutured to skin: Yes Sterile dressing applied: Yes Anesthesia: 1% Lidocaine Volume anesthetic (ml): 20 Incision made with: #11 blade Post procedure: sutured to skin Lee of air heard: Yes Tube Drainage: none Post procedure CXR?: Yes Patient tolerated procedure: Yes Progress: Risks, benefits, alternatives of left anterior chest tube placement reviewed with the patient included but not limited to bleeding, infection, recurrence, numbness, pain, scarring, tube dislodgement, tubal occlusion of the patient wished to proceed. All questions answered. Consent site. Procedure performed as noted above. Postprocedure chest x-ray within normal limits.
[2024-12-30 17:00] VITALS: BP 136/71; PULSE 79; RESP 14; TEMP 37.3; O2SAT 96
[2024-12-30] MEDS: HYDROmorphone HCl 0.5 MG/0.5 ML SYRINGE IVPUSH (17:32)
[2024-12-30 19:40] VITALS: BP 147/82; PULSE 91; RESP 18; TEMP 36.9; O2SAT 96
[2024-12-30] MEDS: Ketorolac Tromethamine 30 MG/ML VIAL IVPUSH (19:42)
[2024-12-30] MEDS: Melatonin 3 MG TABLET 6 MG PO (19:48)
[2024-12-30 21:19] VITALS: BP 137/72; PULSE 72; RESP 20; TEMP 36.8; O2SAT 96
[2024-12-30 21:44] VITALS: BMI 18.5
[2024-12-30] MEDS: 0.9 % Sodium Chloride Flush 3 ML SYRINGE IVFLUSH (23:25)
[2024-12-31 02:58] VITALS: BP 140/68; PULSE 66; RESP 20; TEMP 36.5; O2SAT 98
[2024-12-31] MEDS: Ketorolac Tromethamine 30 MG/ML VIAL IVPUSH ×2 (05:36→22:34)
[2024-12-31 07:28] VITALS: BP 136/79; PULSE 62; RESP 16; TEMP 36.3; O2SAT 95
--- NOTE | 2024-12-31 07:42 | PM.PNTS ---
Subjective Subjective Date of Service: 12/31/24 Interval history: Feels significantly improved. Denies shortness of breath. Using incentive spirometer. Physical Exam Vital Signs: Vital Signs: Last Vital Signs Temp 97.3 F 12/31/24 07:28 Pulse 62 12/31/24 07:28 Resp 16 12/31/24 07:28 BP 136/79 12/31/24 07:28 Pulse Ox 95 12/31/24 07:28 O2 Del Method Room Air 12/31/24 07:28 O2 Flow Rate 2 12/31/24 02:58 BMI result Body Mass Index 18.5 Const: General: comfortable, no acute distress and alert Orientation/consciousness: patient oriented x3 Chest: Other: left anterior chest tube in place no air leak on exam Resp: Effort & Inspection: normal respiratory effort, no cough, not labored, no respiratory distress, not tachypneic, no use of accessory muscles and symmetric chest movement Skin: General skin exam: no rashes or lesions noted Neuro: General: patient oriented x3 and moves all extremities Procedures Date of Service Date of Service: 12/31/24 Progress Note: A&P Assessment and plan (1) Pneumothorax: Status: Acute Plan Large left pneumothorax requiring chest tube yesterday. Significantly improved this morning symptomatically and on imaging.Vitals stable. Small apical air space persists. Cont chest tube to suction for now, can put to water seal for ambulation. Cont incentive spirometery. Repeat CXR in AM. Time Spent With Patient Time: Total time managing care of this patient today ____ minutes. Quality Stroke Does the patient have a stroke diagnosis?: No VTE Prior VTE?: No VTE Risk Level:: Surgical - low VTE Device Contraindication: N/A - Device Ordered VTE Drug Contraindication: Treatment Not Indicated
--- NOTE | 2024-12-31 09:49 | MHC.CM.PN ---
FROM HOME W/ PARENTS. FUNCTIONALLY INDEPENDENT. DENIES USE OF DME OR SERVICES. PCP DONNA JUAREZ ABSORPTION AND ADSORPTION ENGINEER NO HCP. CM PROVIDED EDUCATION AND OFFERED ASSISTANCE. PATIENT DECLINED. DP: GOAL IS HOME SELF CARE. MOTHER CAN ASSIST W/ DRESSING CHANGES IF NEEDED AND WILL TRANSPORT. CM WILL CONTINUE TO FOLLOW.
[2024-12-31] MEDS: 0.9 % Sodium Chloride Flush 3 ML SYRINGE IVFLUSH ×3 (10:23→20:59)
[2024-12-31 12:07] VITALS: BMI 18.5
--- NOTE | 2024-12-31 12:17 | MHC.CLN ---
NUTRITION PATIENT IS THIN WITH BMI=18.5 AND IS 78% IBW. DOES NOT APPEAR TO BE MALNOURISHED. REPORTS THAT EATING WELL. NO ADDITIONAL NUTRITION INTERVENTIONS AT THIS TIME. RD TO MONITOR WEEKLY.
[2024-12-31 15:23] VITALS: BP 140/63; PULSE 65; RESP 16; TEMP 37.1; O2SAT 95
[2024-12-31 19:23] VITALS: BP 132/70; PULSE 64; RESP 18; TEMP 36.9; O2SAT 97
[2024-12-31] MEDS: Melatonin 3 MG TABLET 6 MG PO (21:03)
[2025-01-01 04:00] VITALS: BP 131/84; PULSE 63; RESP 18; TEMP 37.2; O2SAT 97
--- NOTE | 2025-01-01 07:04 | PM.PNGS ---
Subjective Subjective Date of Service: 01/01/25 Interval history: Patient states feeling much better today, no shortness of breath or chest pain noted. Able to use spirometry. Physical Exam Vital Signs: Vital Signs: Last Vital Signs Temp 98.9 F 01/01/25 04:00 Pulse 63 01/01/25 04:00 Resp 18 01/01/25 04:00 BP 131/84 01/01/25 04:00 Pulse Ox 97 01/01/25 04:00 O2 Del Method Room Air 01/01/25 04:00 O2 Flow Rate 2 12/31/24 02:58 BMI result Body Mass Index 18.5 Const: General: comfortable, no acute distress, alert and awake Orientation/consciousness: patient oriented x3 Chest: Other: Left anterior chest tube in place No air leak on exam Resp: Other: no use of accessory muscles Effort & Inspection: normal respiratory effort and able to speak in complete sentences Cardio: Rate: regular rate Rhythm: regular rhythm Skin: Other: no lesions or rashes Neuro: General: patient oriented x3 Objective Data Active Medications Acetaminophen (Acetaminophen 325 Mg Tablet) 650 mg PO Q6H PRN PRN Reason: Pain, Mild 1-3,fever,headache Calcium Carbonate (Calcium Carbonate 750 Mg Tab.Chew) 750 mg PO Q4H PRN PRN Reason: Heartburn Hydromorphone HCl (Hydromorphone Hcl 0.5 Mg/0.5 Ml Syringe) 0.5 mg IVPUSH Q4H PRN; Protocol PRN Reason: Pain, Severe (Pain Scale 7-10) Last Admin: 12/30/24 17:32 Dose: 0.5 mg Documented By: SOPHIE Ketorolac Tromethamine (Ketorolac Tromethamine 30 Mg/Ml Vial) 30 mg IVPUSH Q6H PRN PRN Reason: Pain, Mild (Pain Scale 1-3) Stop: 01/04/25 15:22 Last Admin: 12/31/24 22:34 Dose: 30 mg Documented By: CHANCE Magnesium Hydroxide (Milk Of Magnesia 30 Ml Oral.Susp) 30 ml PO DAILY PRN PRN Reason: Constipation Melatonin (Melatonin 3 Mg Tablet) 6 mg PO BEDTIME PRN PRN Reason: Insomnia Last Admin: 12/31/24 21:03 Dose: 6 mg Documented By: CHANCE Oxycodone HCl (Oxycodone Hcl Immed Release 5 Mg Tablet) 5 mg PO Q4H PRN PRN Reason: Pain, Moderate(Pain Scale 4-6) Sodium Chloride (0.9 % Sodium Chloride Flush 3 Ml Syringe) 3 ml IVFLUSH QSHIFT [facility] Last Admin: 12/31/24 20:59 Dose: 3 ml Documented By: CHANCE Zolpidem Tartrate (Zolpidem Tartrate 5 Mg Tablet) 5 mg PO BEDTIME PRN PRN Reason: Insomnia Labs 12/30/24 14:08 12/30/24 14:08 Procedures Date of Service Date of Service: 01/01/25 Progress Note: A&P Assessment and plan Plan Left pneumothorax that required chest tube 2 days ago. Patient reports significant improvement in chest pain and breathing, able to get up and move around as well. Waiting for chest xray report from this morning Time Spent With Patient Time: Total time managing care of this patient today ____ minutes. Quality Stroke Does the patient have a stroke diagnosis?: No VTE Prior VTE?: No VTE Risk Level:: Surgical - low VTE Device Contraindication: N/A - Device Ordered VTE Drug Contraindication: Treatment Not Indicated
[2025-01-01 07:34] VITALS: BP 126/57; PULSE 54; RESP 16; TEMP 36.6; O2SAT 96
--- NOTE | 2025-01-01 08:03 | PM.PNTS ---
Subjective Subjective Date of Service: 01/01/25 Interval history: Feels fairly well this morning. Denies shortness of breath. OOB and ambulating without difficulty. Using incentive spirometer. Physical Exam Vital Signs: Vital Signs: Last Vital Signs Temp 97.9 F 01/01/25 07:34 Pulse 54 01/01/25 07:34 Resp 16 01/01/25 07:34 BP 126/57 L 01/01/25 07:34 Pulse Ox 96 01/01/25 07:34 O2 Del Method Room Air 01/01/25 07:34 O2 Flow Rate 2 12/31/24 02:58 BMI result Body Mass Index 18.5 Const: General: comfortable, no acute distress and alert Orientation/consciousness: patient oriented x3 Chest: Other: left anterior chest tube in place no air leak on pleurvac this morning, scant serosanguineous drainage Resp: Effort & Inspection: normal respiratory effort, not labored and not tachypneic Skin: General skin exam: no rashes or lesions noted Neuro: General: patient oriented x3 and moves all extremities Procedures Date of Service Date of Service: 01/01/25 Progress Note: A&P Assessment and plan (1) Pneumothorax: Status: Acute Plan Await AM CXR. If lung up, will place chest tube to water seal and repeat CXR later today. If lung remains up off suction, will remove chest tube. Cont OOB/ambulation, incentive spirometry 10x/hr, pain control. Patient comfortable with plan. Time Spent With Patient Time: Total time managing care of this patient today ____ minutes. Quality Stroke Does the patient have a stroke diagnosis?: No VTE Prior VTE?: No VTE Risk Level:: Surgical - low VTE Device Contraindication: N/A - Device Ordered VTE Drug Contraindication: Treatment Not Indicated
[2025-01-01] MEDS: 0.9 % Sodium Chloride Flush 3 ML SYRINGE IVFLUSH ×2 (08:11→14:27)
[2025-01-01 14:59] VITALS: BP 134/96; PULSE 72; RESP 18; TEMP 36.9; O2SAT 95
[2025-01-01 19:30] VITALS: BP 121/75; PULSE 52; RESP 18; TEMP 36.1; O2SAT 97
[2025-01-01] MEDS: Zolpidem Tartrate 5 MG TABLET PO (21:04)
[2025-01-02 03:14] VITALS: BP 131/58; PULSE 51; RESP 16; TEMP 36.1; O2SAT 98
--- NOTE | 2025-01-02 06:57 | PM.PNGS ---
Subjective Subjective Date of Service: 01/02/25 <Theresa Feldercomo - Last Filed: 01/02/25 07:03> 01/02/25 <Aminata Jackson PA-C - Last Filed: 01/02/25 08:08> 01/02/25 <William Sanchez MD - Last Filed: 01/02/25 08:50> Interval history: Patient feels well this morning, able to ambulate, has an appetite and doing spirometry. No SOB or chest pain reported <Blitz [employer] Performance InstrumentsDung - Last Filed: 01/02/25 07:03> Physical Exam Vital Signs: Vital Signs: Last Vital Signs Temp 96.9 F 01/02/25 03:14 Pulse 51 01/02/25 03:14 Resp 16 01/02/25 03:14 BP 131/58 L 01/02/25 03:14 Pulse Ox 98 01/02/25 03:14 O2 Del Method Room Air 01/02/25 03:14 O2 Flow Rate 2 12/31/24 02:58 BMI result Body Mass Index 18.5 <[employer] - Last Filed: 01/02/25 07:03> Const: General: comfortable, alert and awake <[employer]ung - Last Filed: 01/02/25 07:03> Orientation/consciousness: patient oriented x3 <[employer] - Last Filed: 01/02/25 07:03> Chest: Other: Anterior chest tube in place on water seal, no ouput <[employer]ung [employer]ANE Last Filed: 01/02/25 07:03> Other: left anterior chest tube in place on water seal, scant output small air leak on pleurvac <Aminata Jackson PA-C - Last Filed: 01/02/25 08:08> Resp: Effort & Inspection: normal respiratory effort and able to speak in complete sentences <[employer] - Last Filed: 01/02/25 07:03> Effort & Inspection: not labored and not tachypneic <MARIA L Dawn Last Filed: 01/02/25 08:08> Cardio: Rate: regular rate <[employer] - Last Filed: 01/02/25 07:03> Rhythm: regular rhythm <Theresa Dung - Last Filed: 01/02/25 07:03> Peripheral pulses: radial pulses present <Theresa Feldercomo - Last Filed: 01/02/25 07:03> Skin: General skin exam: no rashes or lesions noted <Aminata Jackson PA-C - Last Filed: 01/02/25 08:08> Neuro: General: patient oriented x3 <Theresa Dung - Last Filed: 01/02/25 07:03> Objective Data Active Medications Acetaminophen (Acetaminophen 325 Mg Tablet) 650 mg PO Q6H PRN PRN Reason: Pain, Mild 1-3,fever,headache Calcium Carbonate (Calcium Carbonate 750 Mg Tab.Chew) 750 mg PO Q4H PRN PRN Reason: Heartburn Hydromorphone HCl (Hydromorphone Hcl 0.5 Mg/0.5 Ml Syringe) 0.5 mg IVPUSH Q4H PRN; Protocol PRN Reason: Pain, Severe (Pain Scale 7-10) Last Admin: 12/30/24 17:32 Dose: 0.5 mg Documented By: SOPHIE Ketorolac Tromethamine (Ketorolac Tromethamine 30 Mg/Ml Vial) 30 mg IVPUSH Q6H PRN PRN Reason: Pain, Mild (Pain Scale 1-3) Stop: 01/04/25 15:22 Last Admin: 12/31/24 22:34 Dose: 30 mg Documented By: CHANCE Magnesium Hydroxide (Milk Of Magnesia 30 Ml Oral.Susp) 30 ml PO DAILY PRN PRN Reason: Constipation Melatonin (Melatonin 3 Mg Tablet) 6 mg PO BEDTIME PRN PRN Reason: Insomnia Last Admin: 12/31/24 21:03 Dose: 6 mg Documented By: CHANCE Oxycodone HCl (Oxycodone Hcl Immed Release 5 Mg Tablet) 5 mg PO Q4H PRN PRN Reason: Pain, Moderate(Pain Scale 4-6) Sodium Chloride (0.9 % Sodium Chloride Flush 3 Ml Syringe) 3 ml IVFLUSH QSHIFT BEATA Last Admin: 01/02/25 01:11 Dose: Not Given Documented By: MADYSON Non-Admin Reason: Patient Asleep Zolpidem Tartrate (Zolpidem Tartrate 5 Mg Tablet) 5 mg PO BEDTIME PRN PRN Reason: Insomnia Last Admin: 01/01/25 21:04 Dose: 5 mg Documented By: MADYSON <Theresa Conwayo - Last Filed: 01/02/25 07:03> Labs CBC & Chem 7: 12/30/24 14:08 12/30/24 14:08 <Theresa ParkDung - Last Filed: 01/02/25 07:03> Procedures Date of Service Date of Service: 01/02/25 <Theresa Feldercomo - Last Filed: 01/02/25 07:03> 01/02/25 <Aminata Jackson PA-C - Last Filed: 01/02/25 08:08> 01/02/25 <William Sanchez MD - Last Filed: 01/02/25 08:50> Progress Note: A&P Assessment and plan (1) Pneumothorax: Status: Acute <Theresaelisabeth Razo - Last Filed: 01/02/25 07:03> Assessment and Plan: Awaiting CXR this morning to recheck after continued apical airspace in the left lung. Continued ambulation, spirometry 10x per hour. <Theresa Razo - Last Filed: 01/02/25 07:03> Awaiting CXR this morning to recheck after continued apical airspace in the left lung. Continued ambulation, spirometry 10x per hour. Agree with above assessment and plan. Unfortunately he has an air leak this morning with persistent air space on f/u CXR. Discussed possible options including second chest tube, continued observation, versus proceeding with left VATS, blebectomy as it is unlikely lung will heal at this point. He has agreed to proceed. He will be added onto the OR schedule for tomorrow. Cont chest tube for now, incentive spirometery, OOB/ambulation. <Aminata Jackson PA-C - Last Filed: 01/02/25 08:08> Awaiting CXR this morning to recheck after continued apical airspace in the left lung. Continued ambulation, spirometry 10x per hour. Agree with above assessment and plan. Unfortunately he has an air leak this morning with persistent air space on f/u CXR. Discussed possible options including second chest tube, continued observation, versus proceeding with left VATS, blebectomy as it is unlikely lung will heal at this point. He has agreed to proceed. He will be added onto the OR schedule for tomorrow. Cont chest tube for now, incentive spirometery, OOB/ambulation. As noted above. <William Sanchez MD - Last Filed: 01/02/25 08:50> Time Spent With Patient Time: Total time managing care of this patient today ____ minutes. <Theresaelisabeth Conwayo - Last Filed: 01/02/25 07:03> Quality Stroke Does the patient have a stroke diagnosis?: No <Theresa Dung - Last Filed: 01/02/25 07:03> VTE Prior VTE?: No <Theresa Dung - Last Filed: 01/02/25 07:03> VTE Risk Level:: Surgical - low <Theresa Dung - Last Filed: 01/02/25 07:03> VTE Device Contraindication: N/A - Device Ordered <Theresa Dung - Last Filed: 01/02/25 07:03> VTE Drug Contraindication: Treatment Not Indicated <Theresa Dung - Last Filed: 01/02/25 07:03>
[2025-01-02] MEDS: 0.9 % Sodium Chloride Flush 3 ML SYRINGE IVFLUSH ×3 (07:27→21:44)
[2025-01-02 07:41] VITALS: BP 128/80; PULSE 73; RESP 16; TEMP 36.2; O2SAT 97
--- NOTE | 2025-01-02 09:38 | MHC.SHP ---
Pre-Procedural Eval Section A - 24 Hr Update-Section A only Date of Service: 01/03/25 The patient is an INPATIENT: Yes Changes since office visit: No Cold of Flu in the past 2 weeks, No New Medical Problems, No Changes in Medication and No Patient answered all questions Section B - Complete if H&P > 30 days Chief Complaint: Ptx left Allergies: Allergies Allergy/AdvReac Type Severity Reaction Status Date / Time No Known Allergies Allergy Verified 12/30/24 13:31 Review of Systems Sugical H&P ROS: Negative: Constitution, Cardiovascular, Respiratory, Neurological, Psychiatric, Hem-Onc, Allergic/Immunologic, Gastrointestinal, Genitourinary, Musculoskeletal, Integumentary, Endocrine and Eyes/Ears/Nose/Throat Exam Surgical H&P Exam: Normal: HEENT, Normal: Heart, Normal: Lungs, Normal: Extremities, Normal: Abdomen, Normal: Skin and Normal: Neurological Plan I have reviewed the history and physical and performed a pertinent physical examination on my patient. No changes have occurred unless specified. Time Spent With Patient Time: Total time managing care of this patient today ____ minutes.
[2025-01-02] MEDS: LORazepam 1 MG TABLET PO (10:55)
--- NOTE | 2025-01-02 11:58 | MHC.CM.PN ---
EMR REVIEWED. PT IS NOT MEDICALLY CLEARED FOR DC, WILL HAVE VATS PROCEDURE TODAY. CM WILL CONTINUE TO FOLLOW FOR ANY CHANGE TO DC PLAN/NEEDS.
--- NOTE | 2025-01-02 12:21 | PC.NURSE ---
Per PA okay to transfer patient to CT without RN
[2025-01-02] MEDS: iohexoL 350 MG/ML 100 ML INFUS..BTL IV (12:44)
[2025-01-02 12:53] VITALS: BP 120/59; PULSE 62; RESP 15; TEMP 36.6; O2SAT 96
[2025-01-02 14:56] VITALS: BP 122/72; PULSE 60; RESP 18; TEMP 37.3; O2SAT 97
[2025-01-02 19:29] VITALS: BP 132/81; PULSE 65; RESP 18; TEMP 36.5; O2SAT 98
[2025-01-02] MEDS: Zolpidem Tartrate 5 MG TABLET PO (21:42)
[2025-01-03] VITALS (13 sets, daily range): BP systolic 126–158; BP diastolic 68–102; PULSE 61–115; RESP 15–20; TEMP 36.3–37.5; O2SAT 94–99
[2025-01-03 06:09] LABS: MANUAL DIFF FLAG NO
[2025-01-03 06:15] LABS: Basophils Percent Auto 0.2 % (0-2); Eosinophils Absolute Auto 0.3 X10*3/uL (0.0-0.4); Eosinophils Percent Auto 2.7 % (0-4); Hematocrit 48.8 % (42.0-52.0); Hemoglobin 16.9 g/dl (14.0-18.0); Imm Gran Abs Auto 0.02 X10*3/uL (0.00-0.03); Imm Gran Pct Auto 0.2 % (0.0-0.4); Lymphocytes Absolute Auto 3.2 X10*3/uL (1.2-4.9); Lymphocytes Percent Auto 31.5 % (20-40); Mean Corpuscular HGB Conc 34.6 g/dl (31.0-36.0); Mean Corpuscular Hemoglobin 29.8 pg (27.0-33.0); Mean Corpuscular Volume 86.1 fL (80.0-98.0); Mean Platelet Volume 9.6 fL (9.4-12.4); Monocytes Absolute Auto 0.8 X10*3/uL (0.1-1.2); Monocytes Percent Auto 8.1 % (2-11); Neutrophils Absolute Auto 5.8 x10*3/uL (2.0-8.3); Neutrophils Percent Auto 57.3 % (45-73); Platelet Count 288 X10*3/uL (160-400); Red Blood Count 5.67 X10*6/uL (4.60-5.80); Red Cell Distribution Width 12.4 % (11.0-16.0); White Blood Count 10.1 X10*3/uL (4.8-10.8)
[2025-01-03 06:34] LABS: Anion Gap 14 (12-20); Blood Urea Nitrogen 13 mg/dL (9-16); Calcium 10.2 mg/dL (8.4-10.2); Carbon Dioxide 27 mmol/L (22-29); Chloride 105 mmol/L (96-108); Estimated Glomerular Filt Rate > 60; Glucose Fasting 103 mg/dL (60-99); Sodium 142 mmol/L (135-145)
--- NOTE | 2025-01-03 08:16 | P.CONAN_ITS ---
HPI - Anesthesia Eval Consult details Narrative: 19 yo M admitted with spontaneous pneumothorax s/p left chest tube. Presenting for VATS with blebectomy. PMFSH Active Problems Active Problems: All Active Problems Pneumothorax (Acute) Impacted cerumen, right ear (Acute) Anxiety and depression (Acute) Physical exam, annual (Acute) Laboratory tests ordered as part of a complete physical exam (CPE) (Acute) Past Medical History Medical History No known health problems Family History Family History Mother Hypertension No family history of mental disorder Father No family history of mental disorder Diabetes Maternal Grandfather Lymphoma No family history of mental disorder Family history of problems with anesthesia: No Surgical History History of Problems with Anesthesia: No Social History Social History Household Members: Family Housing: House Do you presently have visiting nurse or other home services: No Comment: chest tube safety Patient Tobacco Use Status: Never used Tobacco Smoked in Last 30 Days: No e-Cigarette/Vaping Use: Currently Using Frequency of e-Cigarette/Vaping Use: daily Patient Interested in Nicotine Replacement: No Patient Given Instructions on How to Stop Smoking: No Second Hand Smoke Exposure: No Use of substances other than those prescribed or required for medical reasons: Yes Substance Use Type: Marijuana Substance Use Type Other:: smoked usually Substance Use Frequency: Daily Last Used Substance: Hours (ago) Currently Displaying Signs/Symptoms of Drug Intoxication Withdrawal: No Any prior treatment program specific to substance use: No Have you been hit, kicked, punched, or otherwise hurt by someone within the past year? If so, by whom?: No Do you feel safe in your current relationship?: Yes Is there a partner from a previous relationship who is making you feel unsafe now?: No Are you made to feel afraid or neglected: No Are you DNR?: No Advance Directives: No Advance Directives Information Provided: Yes Do you have a plan to hurt others: No Plan Recently lost weight without trying: No Eating poorly because of decreased appetite: No Nutrition Risks: No Nutritional Risk Poor oral hygiene: No service: No Current occupational status: employed Current occupation: Construction Current occupational exposures/hazards: Yes Cognitive needs: No Hearing needs: No Vision needs: No Meds Allergies Allergy/AdvReac Type Severity Reaction Status Date / Time No Known Allergies Allergy Verified 12/30/24 13:31 Active Medications: Current Medications Acetaminophen (Acetaminophen 325 Mg Tablet) 650 mg PO Q6H PRN PRN Reason: Pain, Mild 1-3,fever,headache Calcium Carbonate (Calcium Carbonate 750 Mg Tab.Chew) 750 mg PO Q4H PRN PRN Reason: Heartburn Hydromorphone HCl (Hydromorphone Hcl 0.5 Mg/0.5 Ml Syringe) 0.5 mg IVPUSH Q4H PRN; Protocol PRN Reason: Pain, Severe (Pain Scale 7-10) Last Admin: 12/30/24 17:32 Dose: 0.5 mg Ketorolac Tromethamine (Ketorolac Tromethamine 30 Mg/Ml Vial) 30 mg IVPUSH Q6H PRN PRN Reason: Pain, Mild (Pain Scale 1-3) Stop: 01/04/25 15:22 Last Admin: 12/31/24 22:34 Dose: 30 mg Lorazepam (Lorazepam 1 Mg Tablet) 1 mg PO TID PRN PRN Reason: Anxiety Last Admin: 01/02/25 10:55 Dose: 1 mg Magnesium Hydroxide (Milk Of Magnesia 30 Ml Oral.Susp) 30 ml PO DAILY PRN PRN Reason: Constipation Melatonin (Melatonin 3 Mg Tablet) 6 mg PO BEDTIME PRN PRN Reason: Insomnia Last Admin: 12/31/24 21:03 Dose: 6 mg Oxycodone HCl (Oxycodone Hcl Immed Release 5 Mg Tablet) 5 mg PO Q4H PRN PRN Reason: Pain, Moderate(Pain Scale 4-6) Sodium Chloride (0.9 % Sodium Chloride Flush 3 Ml Syringe) [facility] Last Admin: 01/02/25 21:44 Dose: 3 ml Zolpidem Tartrate (Zolpidem Tartrate 5 Mg Tablet) 5 mg PO BEDTIME PRN PRN Reason: Insomnia Last Admin: 01/02/25 21:42 Dose: 5 mg Home Medications ?Medication ?Instructions ?Recorded ?Confirmed ?Last Taken ?Type No Known Home Meds 12/30/24 12/30/24 Unknown History Exam Exam Date and Time: 01/03/25 0725 Height,Weight and Vital Signs: Height 5 ft 10 in Weight 58.4 kg Last Vital Signs Temp 98.8 F 01/03/25 06:06 Pulse 67 01/03/25 06:06 Resp 15 01/03/25 06:06 BP 127/72 01/03/25 06:06 Pulse Ox 98 01/03/25 06:06 O2 Del Method Room Air 01/03/25 06:06 O2 Flow Rate 2 12/31/24 02:58 Pertinent Lab Results Pertinent Lab Results: Laboratory Tests 12/30/24 12/30/24 01/02/25 14:07 14:08 09:12 WBC 10.4 RBC 5.41 Hgb 16.4 Hct 46.7 MCV 86.3 MCH 30.3 MCHC 35.1 RDW 12.3 Plt Count 250 MPV 9.2 L Immature Gran % (Auto) 0.2 Neut % (Auto) 81.4 H Lymph % (Auto) 12.0 L Mcdonough % (Auto) 6.2 Eos % (Auto) 0.1 Baso % (Auto) 0.1 Lymph # (Auto) 1.3 Mcdonough # (Auto) 0.7 Eos # (Auto) 0.0 Baso # (Auto) 0.0 Abs Immat Gran (auto) 0.02 Absolute Neuts (auto) 8.5 H Absolute Nucleated RBC 0.000 Nucleated RBC % (auto) 0.0 PT 13.4 H INR 1.2 H Sodium 142 Potassium 4.0 Chloride 107 Carbon Dioxide 21 L Anion Gap 18 BUN 13 Creatinine 0.88 Estim Creat Clear Calc 104.9 Estimated GFR > 60 Random Glucose 133 H Fasting Glucose Calcium 9.8 Total Bilirubin 1.1 H AST 25 ALT 20 Alkaline Phosphatase 71 Troponin I High Sens < 2.7 Total Protein 7.5 Albumin 4.7 Influenza Type A (PCR) NEGATIVE Influenza Type B (PCR) NEGATIVE RSV RNA Qual (PCR) NEGATIVE SARS-CoV-2 RNA (RT-PCR) NEGATIVE Blood Type AB Positive Antibody Screen NEGATIVE 01/03/25 05:48 WBC 10.1 RBC 5.67 Hgb 16.9 Hct 48.8 MCV 86.1 MCH 29.8 MCHC 34.6 RDW 12.4 Plt Count 288 MPV 9.6 Immature Gran % (Auto) 0.2 Neut % (Auto) 57.3 Lymph % (Auto) 31.5 Mcdonough % (Auto) 8.1 Eos % (Auto) 2.7 Baso % (Auto) 0.2 Lymph # (Auto) 3.2 Mcdonough # (Auto) 0.8 Eos # (Auto) 0.3 Baso # (Auto) 0.0 Abs Immat Gran (auto) 0.02 Absolute Neuts (auto) 5.8 Absolute Nucleated RBC 0.000 Nucleated RBC % (auto) 0.0 PT INR Sodium 142 Potassium 4.0 Chloride 105 Carbon Dioxide 27 Anion Gap 14 BUN 13 Creatinine 0.76 Estim Creat Clear Calc 128.0 Estimated GFR > 60 Random Glucose Fasting Glucose 103 H Calcium 10.2 Total Bilirubin AST ALT Alkaline Phosphatase Troponin I High Sens Total Protein Albumin Influenza Type A (PCR) Influenza Type B (PCR) RSV RNA Qual (PCR) SARS-CoV-2 RNA (RT-PCR) Blood Type Antibody Screen Airway Mallampati Class: I TM Dist: >3cm Neck ROM: Full Loose/Missing/Broken Teeth: Yes (chipped molar right upper jaw) Heart: S1S2 Lungs: CTAB Assessment and Plan Assessment Anesthesia Assessment: Anesthesia Plan Discussed and Chart Reviewed Final Anesthetic Review Family History of Problems with Anesthesia: No History of Problems with Anesthesia: No NPO: Yes ASA Class: II Final Preanesthetic Review: No Changes in Pt Med Stat, Meds/Allgs Chart Reviewed, Consent Obtained/Reviewed and Anes Risks/Benef Reviewed Patient Risk: Low Procedure Risk: High Anesthetic Plan Anesthetic Plan: GA and Agree w/ Assess. and Plan Disposition: Standard PACU
--- NOTE | 2025-01-03 09:29 | W.PM.OPN ---
Operative Note Operative Note Date of Service: 01/03/25 Narrative: Preoperative diagnosis: [] Persistent ipsilateral left spontaneous pneumothorax Postop diagnosis: [] The same Procedure [] vats left apical blebectomy, apical parietal pleurectomy, chemical pleurodesis, intercostal nerve block Surgeon: [] Daniel Certified Welder: [] Manuel Type of Anesthesia: [] Jd Jackson Indication for surgery: [] Patient has a persistent ipsilateral left spontaneous pneumothorax. Intraoperative findings demonstrated apical blebs. No other gross intrathoracic pathology demonstrated.. Findings: [] Patient brought to the operating room, placed on operative table supine position, after an adequate level of double-lumen general anesthesia was induced, patient was placed in the right lateral decubitus position. Left chest was prepped and draped in usual sterile fashion. Using anterior and posterior working ports in the anterior and posterior axillary lines, and an anterior port all placed under direct vision, intrathoracic findings were as noted above. [place] of the lung was grasped and sequentially apical blebs were transected using KRISTIE staplers. Specimens sent to pathology. Apical parietal pleurectomy was performed creating a raw surface with [place] grasper. Chest cavity was filled with saline and the lung inflated and staple line was pneumostatic. Chest cavity was irrigated again and secured hemostasis. Through the anterior working port, 24 [place] chest tube under direct vision was advanced and secured to the skin using 0 silk suture. Port sites were closed using deep followed by dermal interrupted 2-0 and 3-0 Vicryl sutures respectively. Chest tube was connected to Pleur-evac and lung re-expanded and no air leak demonstrated. Through the chest tube, sclerosis isn't of doxycycline with 100 cc of saline was infused. Steri-Strips and sterile dressings were applied. Chest tube was kept on water seal for the sclerosis , and will be hooked to suction into hours time followed by postprocedure chest x-ray. Sponge, needle, and instrument counts were reported correct. Patient tolerated the procedure well and emerged from anesthesia stable condition. EBL minimal
[2025-01-03] MEDS: oxyCODONE HCl Immed Release 5 MG TABLET PO ×2 (11:39→18:01)
[2025-01-03] MEDS: Docusate Sodium 100 MG CAPSULE PO ×2 (11:39→19:33)
[2025-01-03] MEDS: HYDROmorphone HCl 0.5 MG/0.5 ML SYRINGE IVPUSH (14:17)
[2025-01-03] MEDS: Acetaminophen 1,000 MG/100 ML PIGGYBACK 400 MG IV ×2 (15:01→19:32)
[2025-01-03] MEDS: 0.9 % Sodium Chloride Flush 3 ML SYRINGE IVFLUSH ×2 (15:27→19:33)
[2025-01-03] MEDS: ondansetron HCL 4 MG/2 ML VIAL IVPUSH (18:29)
[2025-01-03] MEDS: Zolpidem Tartrate 5 MG TABLET PO (20:07)
[2025-01-04] MEDS: HYDROmorphone HCl 0.5 MG/0.5 ML SYRINGE IVPUSH ×2 (00:45→05:50)
[2025-01-04] MEDS: Acetaminophen 1,000 MG/100 ML PIGGYBACK 400 MG IV ×2 (02:54→07:56)
[2025-01-04 03:18] VITALS: BP 127/85; PULSE 93; RESP 18; TEMP 36.2; O2SAT 96
[2025-01-04] MEDS: ondansetron HCL 4 MG/2 ML VIAL IVPUSH (06:06)
[2025-01-04 06:51] VITALS: BP 138/65; PULSE 62; RESP 16; TEMP 36.6; O2SAT 97
[2025-01-04 07:19] LABS: MANUAL DIFF FLAG NO
[2025-01-04 07:23] LABS: Basophils Percent Auto 0.1 % (0-2); Eosinophils Absolute Auto 0.1 X10*3/uL (0.0-0.4); Eosinophils Percent Auto 0.7 % (0-4); Hematocrit 46.5 % (42.0-52.0); Hemoglobin 16.2 g/dl (14.0-18.0); Imm Gran Abs Auto 0.05 X10*3/uL (0.00-0.03); Imm Gran Pct Auto 0.4 % (0.0-0.4); Lymphocytes Absolute Auto 1.2 X10*3/uL (1.2-4.9); Lymphocytes Percent Auto 8.9 % (20-40); Mean Corpuscular HGB Conc 34.8 g/dl (31.0-36.0); Mean Corpuscular Hemoglobin 29.8 pg (27.0-33.0); Mean Corpuscular Volume 85.5 fL (80.0-98.0); Mean Platelet Volume 9.4 fL (9.4-12.4); Monocytes Absolute Auto 1.4 X10*3/uL (0.1-1.2); Neutrophils Percent Auto 79.9 % (45-73); Platelet Count 260 X10*3/uL (160-400); Red Blood Count 5.44 X10*6/uL (4.60-5.80); Red Cell Distribution Width 12.4 % (11.0-16.0); White Blood Count 13.7 X10*3/uL (4.8-10.8)
[2025-01-04] MEDS: Docusate Sodium 100 MG CAPSULE PO (07:56)
[2025-01-04] MEDS: 0.9 % Sodium Chloride Flush 3 ML SYRINGE IVFLUSH (08:02)
--- NOTE | 2025-01-04 08:06 | P.PNGS_ITS ---
Subjective Subjective Date of Service: 01/04/25 Interval history: Patient doing well today POD1 s/p left apical blebectomy. He is experiencing incisional site pain, well managed by current pain regimen. Patient has been out of bed and ambulating. He is tolerating his diet. Physical Exam 2 Vital Signs: Vital Signs: Last Vital Signs Temp 98 F 01/04/25 06:51 Pulse 62 01/04/25 06:51 Resp 16 01/04/25 06:51 BP 138/65 01/04/25 06:51 Pulse Ox 97 01/04/25 06:51 O2 Del Method Room Air 01/04/25 06:51 O2 Flow Rate 4 01/03/25 10:15 BMI result Body Mass Index 18.5 Const: General: no acute distress, alert and awake Chest: Other: Incision sites are clean dry and intact, dressing are intact. Chest tube is secured in place, output is approximately 120 cc of dark drainage. No evidence of air leak. Resp: Effort & Inspection: normal respiratory effort and able to speak in complete sentences Objective Data Active Medications Calcium Carbonate (Calcium Carbonate 750 Mg Tab.Chew) 750 mg PO Q4H PRN PRN Reason: Heartburn Docusate Sodium (Docusate Sodium 100 Mg Capsule) 100 mg PO BID [facility] Last Admin: 01/04/25 07:56 Dose: 100 mg Documented By: EVELIA Hydromorphone HCl (Hydromorphone Hcl 0.5 Mg/0.5 Ml Syringe) 0.5 mg IVPUSH Q4H PRN; Protocol PRN Reason: Pain, Severe (Pain Scale 7-10) Last Admin: 01/04/25 05:50 Dose: 0.5 mg Documented By: RENU Acetaminophen (Ofirmev) 1,000 mg in 100 mls @ 400 mls/hr IV Q6H [facility] Last Admin: 01/04/25 07:56 Dose: 400 mls/hr Documented By: EVELIA Ketorolac Tromethamine (Ketorolac Tromethamine 30 Mg/Ml Vial) 30 mg IVPUSH Q6H PRN PRN Reason: Pain, Mild (Pain Scale 1-3) Stop: 01/04/25 15:22 Last Admin: 12/31/24 22:34 Dose: 30 mg Documented By: CHANCE Lorazepam (Lorazepam 1 Mg Tablet) 1 mg PO TID PRN PRN Reason: Anxiety Last Admin: 01/02/25 10:55 Dose: 1 mg Documented By: AG Magnesium Hydroxide (Milk Of Magnesia 30 Ml Oral.Susp) 30 ml PO DAILY PRN PRN Reason: Constipation Melatonin (Melatonin 3 Mg Tablet) 6 mg PO BEDTIME PRN PRN Reason: Insomnia Last Admin: 12/31/24 21:03 Dose: 6 mg Documented By: CHANCE Ondansetron HCl (Ondansetron Hcl 4 Mg/2 Ml Vial) 4 mg IVPUSH Q8H PRN PRN Reason: Nausea and Vomiting Last Admin: 01/04/25 06:06 Dose: 4 mg Documented By: RENU Oxycodone HCl (Oxycodone Hcl Immed Release 5 Mg Tablet) 5 mg PO Q4H PRN PRN Reason: Pain, Moderate(Pain Scale 4-6) Last Admin: 01/03/25 18:01 Dose: 5 mg Documented By: EVELIA Sodium Chloride (0.9 % Sodium Chloride Flush 3 Ml Syringe) 3 ml IVFLUSH [facility] Last Admin: 01/04/25 08:02 Dose: 3 ml Documented By: EVELIA Zolpidem Tartrate (Zolpidem Tartrate 5 Mg Tablet) 5 mg PO BEDTIME PRN PRN Reason: Insomnia Last Admin: 01/03/25 20:07 Dose: 5 mg Documented By: RENU Labs 01/04/25 06:05 01/03/25 05:48 Labs: Laboratory Results - last 24 hr 01/04/25 06:05 MCV 85.5 MCH 29.8 MCHC 34.8 RDW 12.4 Plt Count 260 MPV 9.4 Immature Gran % (Auto) 0.4 Neut % (Auto) 79.9 H Lymph % (Auto) 8.9 L [place] % (Auto) 10.0 Eos % (Auto) 0.7 Baso % (Auto) 0.1 Lymph # (Auto) 1.2 Cass # (Auto) 1.4 H Eos # (Auto) 0.1 Baso # (Auto) 0.0 Abs Immat Gran (auto) 0.05 H Absolute Neuts (auto) 11.0 H Absolute Nucleated RBC 0.000 Nucleated RBC % (auto) 0.0 Procedures Date of Service Date of Service: 01/04/25 Progress Note: A&P Assessment and plan (1) Pneumothorax: Status: Acute (2) S/P video-assisted thoracoscopic surgery (VATS): Status: Acute Plan 19 y/o male POD1 left apical blebectomy. Patient is doing well overall, continuing to improve. Patient is ambulating and tolerating normal diet Patient endorses mild incision site pain. Chest tube is draining approximately 120cc of dark drainage. Drainage is consistent with the chemical pluerodesis used intraoperatively. No air leak noted on exam. AM CXR reviewed, noting improvement of lung filling compared to postop cxr. No evidence of new pneumothorax or pleural effusion. Staple line is intact. Labs reviewed, leukocytosis likely reactive. Plan to remove chest tube this morning and repeat CXR this afternoon. Will trial oral pain regimen prior to discharge. Discussed plan for discharge, pending repeat CXR this afternoon Time Spent With Patient Time: Total time managing care of this patient today ____ minutes. Quality Stroke Does the patient have a stroke diagnosis?: No VTE Prior VTE?: No VTE Risk Level:: Surgical - low VTE Device Contraindication: N/A - Device Ordered VTE Drug Contraindication: Treatment Not Indicated
--- NOTE | 2025-01-04 08:48 | HO.POSTANES ---
Post Anesthesia Evaluation Post Anesthesia Evaluation Date of Service: 01/04/25 Vital Signs: Vital Signs Temp Pulse Resp BP Pulse Ox O2 Del Method 01/04/25 06:51 98 F 62 16 138/65 97 Room Air 01/04/25 03:18 97.2 F 93 18 127/85 96 Room Air Anesthesia: General Endotracheal-GETA Mental Status: Awake Pain Control: Satisfactory Nausea/Vomiting: None Hydration: Adequate Anesthesia-Related Issues: No Anes. Related Issues
--- NOTE | 2025-01-04 08:56 | PM.EVENT ---
Event Note Date of Service: 01/04/25 Event Note: Chest tube removed uneventfully at bedside. Patient tolerated the procedure well. Dressing applied with xeroform and 4x4 dressing. Repeat CXR ordered, repeat in 1 hour Time Spent With Patient Time: Total time managing care of this patient today ____ minutes.
[2025-01-04] MEDS: Ibuprofen 600 MG TABLET PO (09:04)
--- NOTE | 2025-01-04 09:09 | P.DS_ITS ---
DS: Providers Provider Date of Service: 01/04/25 Date of admission: 12/30/24 17:44 Date of discharge: 01/04/25 Primary care physician: Concetta Chirinos CNP Attending physician on admission: William Sanchez Consults: 01/02/25 14:57 Consult to Hematology / Oncology Routine Consulting Provider: [facility] Oncology/Hematology Reason for consultation: FH of factor 5 leiden, family requesting Has provider been notified: No Attending physician on discharge: William Sanchez DS: Diagnosis Discharge Diagnosis (1) Pneumothorax: Status: Acute (2) S/P video-assisted thoracoscopic surgery (VATS): Status: Acute DS: Summary Hospital Course Hospital Course: HPI AT ADMISSION: Adal Peng is a 19 year old male who presents here with a roughly 2 day history of feeling unwell, left chest pain, shortness of breath. Patient presents to the emergency department because of progression of symptoms and on workup was found to have a significant left pneumothorax. Patient has never had this before. Does have a smoking history. Chart was reviewed and patient evaluated. Chest x-ray demonstrates significant left pneumothorax. HOSPITAL COURSE: He was admitted to the thoracic surgical service for further treatment. He underwent left tube thoracostomy placement uneventfully at bedside. He unfortunately had a persistent air leak with and air space after multiple days. It was therefore recommended to proceed with left VATS blebectomy. Technique of the procedure, risks, benefits and alternatives were discussed with the patient and mother. He agreed to proceed. On 01/03/25, VATs left apical blebectomy, apical parietal pleurectomy, chemical pleurodesis, intercostal nerve block was performed by Dr. Sanchez without immediate complication. He tolerated the procedure well and had an uncomplicated recovery course. The following day he felt overall well. He had scant drainage from the pleurvac and no air leak on exam. He was placed to water seal. F/u CXR showed a small apical air space and therefore the chest tube was removed uneventfully at bedside. He however developed an increasing left apical pneumothorax following chest tube removal. Repeat film 4h showed improvement in the air space. Patient was asymptomatic and hemodynamically stable. Discussed options of continued observation overnight versus discharge to home today with close follow up early next week in office and return to ED if develops shortness of breath or difficulty breathing. Patient would like to go home. Mother at [facility] who agrees with plan and is comfortable with chest tube site dressing changes every other day with xeroform, 4x4 and tape. He was discharged to home on 01/04/25 in stable condition. He is to follow up in the office early next week. Status at Discharge Functional status at discharge: independent ambulation Overall status at discharge: patient is progressing back to baseline Time Attestation Discharge Coordination Time (in mins): 45 Quality: Safe Use of Opioids Does Pt have an Active Cancer Diagnosis on the Problem List?: No Quality: Stroke Does the patient have a stroke diagnosis?: No Physical Exam Vital Signs: Vital Signs: Last Vital Signs Temp 98 F 01/04/25 06:51 Pulse 62 01/04/25 06:51 Resp 16 01/04/25 06:51 BP 138/65 01/04/25 06:51 Pulse Ox 97 01/04/25 06:51 O2 Del Method Room Air 01/04/25 06:51 O2 Flow Rate 4 01/03/25 10:15 BMI result Body Mass Index 18.5 Const: General: comfortable, no acute distress and alert [place] ation/consciousness: patient oriented x3 Chest: Other: left VATs incisions clean appearing, steris in place chest tube site with dry dressing in place Resp: Effort & Inspection: normal respiratory effort, able to speak in complete sentences, no cough, not labored, not tachypneic and no use of accessory muscles Skin: General skin exam: no rashes or lesions noted Neuro: General: patient oriented x3 and moves all extremities DS: Data Data Completed and Pending Completed studies during hospitalization [Text1]: 01/03/25 08:25 Surgical [PTH] Routine Lung, left upper lobe blebs, wedge resections: Lung parenchyma with vascular congestion, sparse interstitial chronic inflammation, pleural adhesions and subpleural bleb formation; no atypia or malignancy identified Discharge Plan Discharge Anticipated Discharge Date/Time: 01/04/25 09:44 Patient Disposition: Home, Self-Care Discharge Diagnosis: left pneumothorax Referrals: William Sanchez MD [Physician] - 1 Week Concetta Chirinos CNP [Primary Care Provider] - 1 Week Discharge Medications: New oxycodone 5 mg tablet 5 mg PO Q4H PRN (Reason: pain (scale score 7-10)) Qty: 20 0RF Rx Instructions: Partial Fill upon patient request. docusate sodium [Colace] 100 mg capsule 100 mg PO BID Qty: 30 0RF Discharge Orders: Discharge Order (Routine); Ordered 01/04/25 Ordered By: Aminata [place] Diet: Advance to usual diet Activity on Discharge: No heavy lifting Stand Alone Forms: Patient Portal Discharge page, Work/School Release Print Language: Persian Activity Restrictions/Additional Instructions: If the incision area is tender, you may apply an ice pack for short intervals (No more than 20 minutes on, followed by at least 20 minutes off). Do not apply heat. Do not use creams, lotions, or topical antibiotics. Ok to shower 01/06/25. You have steri strips (small white cloth strips) covering your incision- these will fall off ~1 week. No heavy lifting (>10lbs) or strenuous activity! Take Tylenol Extra-strength 1-2 tabs every 6 hours for the first 1-2 days, then as needed. Motrin 600mg every 6h as needed. Oxycodone every 4-6 hours as needed for pain. Colace 100 mg morning and night for constipation. Follow up in office in a week with Dr. Sanchez. ([phone]) Continue to use your incentive spirometer 10x/hr. Chest tube site dressing changes every other day with xeroform, 4x4 and tape. Call If: -Your temperature exceeds 101? F -You experience excessive pain or swelling -You have an unexpected reaction to medication -You develop shortness of breath -You have excessive bleeding -You experience continued vomiting/nausea -Your incision begins to separate -Your incision shows signs of infection such as increased redness, swelling, excessive pain, drainage (light blood or clear fluid is normal) or heat Care Plan Goals: Return to baseline health and activities following recovery period. Health Concerns: left spontaneous pneumothorax Plan of Treatment: s/p left chest tube insertion s/p left VATS blebectomy chest tube removed 01/04/25 Chest tube site dressing changes every other day Incentive spirometer, pain control F/u in office in 1 week Assessment: Stable Patient Instructions: Return to Work Instructions (DC), Return to Work Instructions (GEN) Discharge Date/Time: 01/04/25 15:34
--- NOTE | 2025-01-04 10:23 | MHC.CLN ---
F/U DIET=REGULAR. APPEARS TO BE TOLERATING DIET WITH USUALLY GOOD INTAKE. NO NEW NUTRITION INTERVENTIONS.
[2025-01-04] MEDS: Calcium Carbonate 750 MG TAB.CHEW PO (11:35)
--- NOTE | 2025-01-04 12:33 | MHC.CM.PN ---
Addendum entered by Dori Casey 01/04/25 14:59: PT CLEARED TO DC HOME TODAY WITH NO SERVICES VIA PRIVATE TRANSPORT Original Note: PT NOT YET MEDICALLY CLEARED DCP HOME WITH NO SERVICES VIA FAMILY TRANSPORT
[2025-01-04] MEDS: Acetaminophen 325 MG TABLET 975 MG PO (13:58)
== END 2025-01-04 15:34 | disposition home or self-care (01) | DRG 121 ==
LOC: HO.ED 15:17 → HO.EDOVER 17:52 → HO.S3 19:50
PROVIDERS: Physician Assistant Surgical; Registered Nurse Emergency; Admitting Provider Surgery; Emergency Provider Emergency Medicine; PCP Nurse Practitioner Family; Visit Provider Surgery
PROC: 0BBG4ZZ Excision of Left Upper Lung Lobe, Percutaneous Endoscopic Approach (ICD-10-PCS; principal; 2025-01-03 07:30)
DX: J93.83 Other pneumothorax (principal); Z20.822 Contact with and (suspected) exposure to COVID-19
CPT/HCPCS: 0241U; 36415; 71045; 71046; 71260; 80048; 80053; 84484; 85025; 85610; 86850; 86900; 86901; 88307; 93005; 99285; A7041; J0131; J0666; J0690; J1100; J1171; J1885; J2003; J2060; J2250; J2405; J2704; J2795; J3010; Q9967

== ENCOUNTER → 2024-12-30 13:07 | Outpatient (BNV) | payer OTHER, SELFPAY | PROVIDERS: Admitting Provider Surgery; Emergency Provider Emergency Medicine; PCP Nurse Practitioner Family; Visit Provider Internal Medicine Cardiovascular Disease | DX: I51.7 Cardiomegaly (principal); R00.0 Tachycardia, unspecified | CPT/HCPCS: 93010 ==

== ENCOUNTER → 2024-12-30 13:31 | Outpatient (BNV) | payer OTHER, SELFPAY | PROVIDERS: Emergency Provider Emergency Medicine; PCP Nurse Practitioner Family; Visit Provider Radiology Diagnostic Radiology | DX: J93.9 Pneumothorax, unspecified (principal); Z46.82 Encounter for fitting and adjustment of non-vascular catheter | CPT/HCPCS: 71045; 71046 ==

== ENCOUNTER → 2024-12-30 13:48 | Outpatient (BNV) | payer OTHER, SELFPAY | PROVIDERS: Emergency Provider Emergency Medicine; PCP Nurse Practitioner Family; Visit Provider Surgery | DX: J93.9 Pneumothorax, unspecified (principal) | CPT/HCPCS: 32551; 99222; 99232 ==

== ENCOUNTER 2024-12-30 17:44 | Outpatient (BNV) | payer OTHER, SELFPAY | END 2024-12-31 06:00 | PROVIDERS: Admitting Provider Surgery; Emergency Provider Emergency Medicine; PCP Nurse Practitioner Family; Visit Provider Specialist | DX: J93.9 Pneumothorax, unspecified (principal) | CPT/HCPCS: 71045 ==

== ENCOUNTER 2024-12-30 17:44 | Outpatient (BNV) | payer OTHER, SELFPAY | END 2025-01-02 07:00 | PROVIDERS: Admitting Provider Surgery; Emergency Provider Emergency Medicine; PCP Nurse Practitioner Family; Visit Provider Radiology Vascular & Interventional Radiology | DX: J93.9 Pneumothorax, unspecified (principal) | CPT/HCPCS: 71260 ==

== ENCOUNTER 2024-12-30 17:44 | Outpatient (BNV) | payer OTHER, SELFPAY | END 2025-01-03 09:32 | PROVIDERS: Admitting Provider Surgery; Emergency Provider Emergency Medicine; PCP Nurse Practitioner Family; Visit Provider Radiology Diagnostic Radiology | DX: J93.9 Pneumothorax, unspecified (principal) | CPT/HCPCS: 71045 ==

== ENCOUNTER 2024-12-30 17:44 | Outpatient (BNV) | payer OTHER, SELFPAY | END 2025-01-01 07:00 | PROVIDERS: Admitting Provider Surgery; Emergency Provider Emergency Medicine; PCP Nurse Practitioner Family; Visit Provider Radiology Diagnostic Radiology | DX: J93.9 Pneumothorax, unspecified (principal) | CPT/HCPCS: 71045 ==

== ENCOUNTER 2024-12-30 17:44 | Outpatient (BNV) | payer OTHER, SELFPAY | END 2025-01-04 07:00 | PROVIDERS: Admitting Provider Surgery; Emergency Provider Emergency Medicine; PCP Nurse Practitioner Family; Visit Provider Radiology Diagnostic Radiology | DX: J93.9 Pneumothorax, unspecified (principal); Z48.813 Encounter for surgical aftercare following surgery on the respiratory system | CPT/HCPCS: 71045 ==

== ENCOUNTER 2025-01-09 08:36 | Outpatient (REF) | payer OTHER, SELFPAY ==
--- NOTE | ~2025-01-09 | XR_ITS ---
EXAMINATION: XR CHEST CLINICAL INFORMATION: Z98.890 - Other specified postprocedural states COMPARISON: 01/04/2025, 01/03/2025. TECHNIQUE: 2 views of the chest were obtained. FINDINGS: Slightly smaller medial size left pneumothorax with apical pleural separation of 0.1 cm although the lateral component has resolved. Right lung remains clear. Remainder of the exam is unchanged. XR/XR chest 2V IMPRESSION: Continued improvement in left medium size pneumothorax. Electronically signed by: Adolfo Villaseñor MD 01/09/2025 09:37 AM EDT
--- OUTSIDE RECORDS SUMMARY | 2025-01-09 09:55 | XMS_ITS | Encounter Summary ---
Author Organization [facility] Address [address] [place] [address] Phone Care Team Providers Care Clinical Laboratory Director Name Role Phone Quoc Thomas MD Primary Care Provider [phone] Encounter Details Date Type Department Care Team (Late st Contact Info) Description 08/23/2016 Documentation [facility] [place] [address] [place] [address] Family Medicine, Physician [address] [place], [place] [address] Social History Tobacco Use Types Packs/Day Years [...] on filedocumented in this encounter Care Teams Clinical Laboratory Director Relationship Specialty Start Date End Date Quoc Thomas MD [address] [place] [address] [place] [address] PCP - General Pediatrics 05/18/18 11/15/23 documented as of this encounter
--- OUTSIDE RECORDS SUMMARY | 2025-01-09 09:55 | XMS_ITS | Encounter Summary ---
Author Organization [facility] Address [address] [place] [address] Phone Care Team Providers Care Motor Vehicle Inspector Name Role Phone Quoc Thomas MD Primary Care Provider [phone] Encounter Details Date Type Department Care Team (Late st Contact Info) Description 05/01/2015 Documentation [facility] [place] [address] [place] [address] Family Medicine, Physician [address] [place], [place] [address] Social History Tobacco Use Types Packs/Day Years [...] on filedocumented in this encounter Care Teams Motor Vehicle Inspector Relationship Specialty Start Date End Date Quoc Thomas MD [address] [place] [address] [place] [address] PCP - General Pediatrics 05/18/18 11/15/23 documented as of this encounter
--- OUTSIDE RECORDS SUMMARY | 2025-01-09 09:55 | XMS_ITS | Encounter Summary ---
Author Organization [facility] Address [address] [place] [address] Phone Care Team Providers Care Thoracic Surgeon Name Role Phone Quoc Thomas MD Primary Care Provider [phone] Encounter Details Date Type Department Care Team (Late st Contact Info) Description 05/01/2015 Documentation [facility] [place] [address] [place] [address] Family Medicine, Physician [address] [place], [place] [address] Social History Tobacco Use Types Packs/Day Years [...] on filedocumented in this encounter Care Teams Thoracic Surgeon Relationship Specialty Start Date End Date Quoc Thomas MD [address] [place] [address] [place] [address] PCP - General Pediatrics 05/18/18 11/15/23 documented as of this encounter
--- OUTSIDE RECORDS SUMMARY | 2025-01-09 09:55 | XMS_ITS | Encounter Summary ---
Author Organization [facility] Address [address] [place] [address] Phone Care Team Providers Care Patient Intake Coordinator Name Role Phone Quoc Thomas MD Primary Care Provider [phone] Encounter Details Date Type Department Care Team (Late st Contact Info) Description 02/03/2012 Documentation [facility] [place] [address] [place], [place] [phone] Family Medicine, Physician [address] [place], [place] [address]44[address] Social History Tobacco Use Types Packs/Day Years [...] on filedocumented in this encounter Care Teams Patient Intake Coordinator Relationship Specialty Start Date End Date Quoc Thomas MD [address] [place] [address] [place] [address] PCP - General Pediatrics 05/18/18 11/15/23 documented as of this encounter
--- OUTSIDE RECORDS SUMMARY | 2025-01-09 09:55 | XMS_ITS | Encounter Summary ---
Author Organization [facility] Address [address] [place] [address] Phone Care Team Providers Care Engraved Roller Inspector Name Role Phone Quoc Thomas MD Primary Care Provider [phone] Encounter Details Date Type Department Care Team (Late st Contact Info) Description 02/03/2012 Documentation [facility] [place] [address] [place], [place] [address]68[address] Family Medicine, Physician [address] [place], [place] [address] Social History Tobacco Use Types Packs/Day Years [...] on filedocumented in this encounter Care Teams Engraved Roller Inspector Relationship Specialty Start Date End Date Quoc Thomas MD [address] [place] [address] [place] [address] PCP - General Pediatrics 05/18/18 11/15/23 documented as of this encounter
--- OUTSIDE RECORDS SUMMARY | 2025-01-09 09:55 | XMS_ITS | Encounter Summary ---
Author Organization [facility] Address [address] [place] [address] Phone Care Team Providers Care Clothespin Drier Operator Name Role Phone Quoc Thomas MD Primary Care Provider [phone] Encounter Details Date Type Department Care Team (Late st Contact Info) Description 02/03/2012 [place]ation [facility] [place] [address] [place], [place] [address] Family Medicine, Physician [address] [place], [place] [address] Social History Tobacco Use Types Packs/Day Years [...] on filedocumented in this encounter Care Teams Clothespin Drier Operator Relationship Specialty Start Date End Date Quoc Thomas MD [address] [place] [address] [place] [address] PCP - General Pediatrics 05/18/18 11/15/23 documented as of this encounter
--- OUTSIDE RECORDS SUMMARY | 2025-01-09 09:55 | XMS_ITS | Clinical Summary ---
Author Organization [facility] Address [address] [place] [address] Phone Care Team Providers Care Certified Surgical First Assistant Name Role Phone Unavailable Primary Care Provider [...] 08/20/2016 Meningococcal Vaccine Completed 12/03/2020, 016 Insurance [employer] [facility]
--- OUTSIDE RECORDS SUMMARY | 2025-01-09 09:55 | XMS_ITS | Encounter Summary ---
Author Organization [facility] Address [address] [place] [address] Phone Care Team Providers Care Grades 7 8 Tutor Name Role Phone Quoc Thomas MD Primary Care Provider [phone] Encounter Details Date Type Department Care Team (Late st Contact Info) Description 05/05/2017 Conversion Encounter [facility] [place] [address] [place] [address] Social History Tobacco Use Types Packs/Day Years [...] on filedocumented in this encounter Care Teams Grades 7 8 Tutor Relationship Specialty Start Date End Date Quoc Thomas MD [address] [place] [address] PCP - General Pediatrics 05/18/18 11/15/23 documented as of this encounter
--- OUTSIDE RECORDS SUMMARY | 2025-01-09 09:55 | XMS_ITS | Encounter Summary ---
Author Organization [facility] Address [address] [place] [address] Phone Care Team Providers Care Soap Grinder Name Role Phone Quoc Thomas MD Primary Care Provider [phone] Encounter Details Date Type Department Care Team (Late st Contact Info) Description 08/23/2016 Documentation [facility] [place] [address] [place] [address] Family Medicine, Physician [address] [place], [place] [address] Social History Tobacco Use Types Packs/Day Years [...] on filedocumented in this encounter Care Teams Soap Grinder Relationship Specialty Start Date End Date Quoc Thomas MD [address] [place] [address] [place] [address] PCP - General Pediatrics 05/18/18 11/15/23 documented as of this encounter
== END 2025-01-09 08:37 | disposition home or self-care (01) ==
LOC: HO.XRAY 08:36
PROVIDERS: PCP Nurse Practitioner Family; Visit Provider Surgery
DX: J93.9 Pneumothorax, unspecified (principal); Z98.890 Other specified postprocedural states
CPT/HCPCS: 71046

== ENCOUNTER 2025-01-09 08:36 | Outpatient (AMB) | payer OTHER, SELFPAY ==
--- NOTE | 2025-01-09 08:40 | A.OFFVIS_ITS ---
Vital Signs 01/09/25 08:47 Height 5 ft 10 in Weight 125 lb BMI 17.9 BP 135/68 Blood Pressure Location Rt brachial Position Sitting Pulse 72 Intake Visit Reasons: s/p vats left apical blebectomy, apical Intake Note: Patient here s/p vats left apical blebectomy, apical parietal pleurectomy, chemical pleurodesis, intercostal nerve block. Reports incision healing well. Patient c/o: steri strips still in place. No longer taking rx pain meds. Surgery: 01-03-2025 Automatic Coin Machine Mechanic Required: No Accompanied by: jamshid Mccloud Allergies No Known Allergies Allergy (Verified 01/09/25 08:45) Medication List - Last Reconciled 01/09/25 by William Sanchez MD docusate sodium (Colace) 100 mg PO BID oxycodone 5 mg PO Q4H PRN HPI Comments Details: Patient presents with her mother follow up. He is doing quite well. Minimal incisional discomfort. Did not require any analgesics. No respiratory issues or complaints. He is no longer smoking/vaping [facility] Medical History No known health problems Family History Mother Hypertension No family history of mental disorder Father No family history of mental disorder Diabetes Maternal Grandfather Lymphoma No family history of mental disorder Social History (Updated 01/09/25 @ 08:47 by BART Valladares) Household Members: Family Housing: House Do you presently have visiting nurse or other home services: No Comment: COUNTS CORRECT Patient Tobacco Use Status: Never used Tobacco e-Cigarette/Vaping Use: Currently Using Second Hand Smoke Exposure: No Substance Use Type: Marijuana service: No Current occupational status: employed Current occupation: Construction Current occupational exposures/hazards: Yes Cognitive needs: No Hearing needs: No Vision needs: No Physical Exam Vital Signs: Last Vital Signs Pulse 72 01/09/25 08:47 BP 135/68 01/09/25 08:47 BMI result Body Mass Index 17.9 Chest Other: Incisions all clean dry and intact. Patient was excellent breath sounds bilaterally. Assessment & Plan Assessment & Plan (1) S/P video-assisted thoracoscopic surgery (VATS): Onset Date: ~01/03/25 Comment: Left apical blebectomy w/ chemical pluerodesis Code(s): Z98.890 - Other specified postprocedural states Category: Surgical Plan: Current plan is to obtain postprocedure x-ray. Patient was also like to resume work on Tuesday which he can do with 4 weeks light duty. No provided. If there were any issues regarding this, he has been instructed to contact the office. Patient will otherwise follow-up p.r.n.. All questions answered. (2) Pneumothorax: Code(s): J93.9 - Pneumothorax, unspecified Category: Surgical Plan: See above Orders: Orders XR chest 2V Today J93.9 - Pneumothorax, unspecified, Z98.890 - Other specified postprocedural states Coding Level of Care Code Global (51810) Diagnoses S/P video-assisted thoracoscopic surgery (VATS) Z98.890 Pneumothorax J93.9
[2025-01-09 08:47] VITALS: BP 135/68; PULSE 72; BMI 17.9
--- OUTSIDE RECORDS SUMMARY | 2025-01-09 08:58 | XMS_ITS | Encounter Summary ---
Author Organization [facility] Address [address] [place] [address] Phone Care Team Providers Care Matrix Repairer Name Role Phone Quoc Thomas MD Primary Care Provider [phone] Encounter Details Date Type Department Care Team (Late st Contact Info) Description 05/05/2017 Conversion Encounter [facility] [place] [address] [place] [address] Social History Tobacco Use Types Packs/Day Years [...] on filedocumented in this encounter Care Teams Matrix Repairer Relationship Specialty Start Date End Date Quoc Thomas MD [address] [place] [address] PCP - General Pediatrics 05/18/18 11/15/23 documented as of this encounter
--- OUTSIDE RECORDS SUMMARY | 2025-01-09 08:58 | XMS_ITS | Encounter Summary ---
Author Organization [facility] Address [address] [place] [address] Phone Care Team Providers Care Evaporator Supervisor Name Role Phone Quoc Thomas MD Primary Care Provider [phone] Encounter Details Date Type Department Care Team (Late st Contact Info) Description 05/01/2015 Documentation [facility] [place] [address] [place] [address] Family Medicine, Physician [address] [place], [place] [address] Social History Tobacco Use Types Packs/Day Years [...] on filedocumented in this encounter Care Teams Evaporator Supervisor Relationship Specialty Start Date End Date Quoc Thomas MD [address] [place] [address] [place] [address] PCP - General Pediatrics 05/18/18 11/15/23 documented as of this encounter
--- OUTSIDE RECORDS SUMMARY | 2025-01-09 08:58 | XMS_ITS | Encounter Summary ---
Author Organization [facility] Address [address] [place] [address] Phone Care Team Providers Care Gold Beater Name Role Phone Quoc Thomas MD Primary Care Provider [phone] Encounter Details Date Type Department Care Team (Late st Contact Info) Description 02/03/2012 Documentation [facility] [place] Family Medicine [address] [place], [place] [phone] Family Medicine, Physician [address] [place], [place] [address]23141 Social History Tobacco Use Types Packs/Day Years [...] on filedocumented in this encounter Care Teams Gold Beater Relationship Specialty Start Date End Date Quoc Thomas MD [address] [place] [address] [place] [address] PCP - General Pediatrics 05/18/18 11/15/23 documented as of this encounter
--- OUTSIDE RECORDS SUMMARY | 2025-01-09 08:58 | XMS_ITS | Encounter Summary ---
Author Organization [facility] Address [address] [place] [address] Phone Care Team Providers Care Internet Specialist Name Role Phone Quoc Thomas MD Primary Care Provider [phone] Encounter Details Date Type Department Care Team (Late st Contact Info) Description 08/23/2016 Documentation [facility] [place] Family Medicine [address] [place] [address] Family Medicine, Physician [address] [place], [place] [address] Social History Tobacco Use Types Packs/Day Years [...] on filedocumented in this encounter Care Teams Internet Specialist Relationship Specialty Start Date End Date Quoc Thomas MD [address] [place] [address] [place] [address] PCP - General Pediatrics 05/18/18 11/15/23 documented as of this encounter
--- OUTSIDE RECORDS SUMMARY | 2025-01-09 08:58 | XMS_ITS | Encounter Summary ---
Author Organization [facility] Address [address] [place] [address] Phone Care Team Providers Care Molder Wax Ball Name Role Phone Quoc Thomas MD Primary Care Provider [phone] Encounter Details Date Type Department Care Team (Late st Contact Info) Description 05/01/[address] [facility] [place] Family Medicine [address] [place] [address] Family Medicine, Physician [address] [place], [place] [address] Social History Tobacco Use Types Packs/Day Years [...] on filedocumented in this encounter Care Teams Molder Wax Ball Relationship Specialty Start Date End Date Quoc Thomas MD [address] [place] [address] [place] [address] PCP - General Pediatrics 05/18/18 11/15/23 documented as of this encounter
--- OUTSIDE RECORDS SUMMARY | 2025-01-09 08:58 | XMS_ITS | Encounter Summary ---
Author Organization [facility] Address [address] [place] [address] Phone Care Team Providers Care Strap Stitcher Name Role Phone Quoc Thomas MD Primary Care Provider [phone] Encounter Details Date Type Department Care Team (Late st Contact Info) Description 08/23/2016 Documentation [facility] [place] Family Medicine [address] [place] [address] Family Medicine, Physician [address] [place], [place] [address] Social History Tobacco Use Types Packs/Day Years [...] on filedocumented in this encounter Care Teams Strap Stitcher Relationship Specialty Start Date End Date Quoc Thomas MD [address] [place] [address] [place] [address] PCP - General Pediatrics 05/18/18 11/15/23 documented as of this encounter
--- OUTSIDE RECORDS SUMMARY | 2025-01-09 08:58 | XMS_ITS | Encounter Summary ---
Author Organization [facility] Address [address] [place] [address] Phone Care Team Providers Care Leisure Studies Professor Name Role Phone Quoc Thomas MD Primary Care Provider [phone] Encounter Details Date Type Department Care Team (Late st Contact Info) Description 02/03/2012 Documentation [facility] [place] [address] [place], [place] [phone] Family Medicine, Physician [address] [place], [place] [address]661 Social History Tobacco Use Types Packs/Day Years [...] on filedocumented in this encounter Care Teams Leisure Studies Professor Relationship Specialty Start Date End Date Quoc Thomas MD [address] [place] [address] [place] [address] PCP - General Pediatrics 05/18/18 11/15/23 documented as of this encounter
--- OUTSIDE RECORDS SUMMARY | 2025-01-09 08:58 | XMS_ITS | Encounter Summary ---
Author Organization [facility] Address [address] [place] [address] Phone Care Team Providers Care Overhauler Name Role Phone Quoc Thomas MD Primary Care Provider [phone] Encounter Details Date Type Department Care Team (Late st Contact Info) Description 02/03/[address] [facility] [place] Family Medicine [address] [place], [place] [phone] Family Medicine, Physician [address] [place], [place] [address] Social History Tobacco Use Types Packs/Day Years [...] on filedocumented in this encounter Care Teams Overhauler Relationship Specialty Start Date End Date Quoc Thomas MD [address] [place] [address] [place] [address] PCP - General Pediatrics 05/18/18 11/15/23 documented as of this encounter
--- OUTSIDE RECORDS SUMMARY | 2025-01-09 08:58 | XMS_ITS | Clinical Summary ---
Author Organization [facility] Address [address] [place] [address] Phone Care Team Providers Care Electric Shaver Mechanic Name Role Phone Unavailable Primary Care [...] 08/20/2016 Meningococcal Vaccine Completed 12/03/2020, 016 Insurance [employer] [facility]
== END 2025-01-09 08:55 | disposition home or self-care (01) ==
LOC: HO.HGS 08:37
PROVIDERS: PCP Nurse Practitioner Family; Visit Provider Surgery
DX: Z98.890 Other specified postprocedural states (principal); J93.9 Pneumothorax, unspecified
CPT/HCPCS: 99024

== ENCOUNTER → 2025-01-09 09:10 | Outpatient (BNV) | payer OTHER, SELFPAY | PROVIDERS: PCP Nurse Practitioner Family; Visit Provider Radiology Diagnostic Radiology | DX: J93.9 Pneumothorax, unspecified (principal) | CPT/HCPCS: 71046 ==

== ENCOUNTER 2025-01-11 09:19 | Outpatient (AMB) | payer OTHER, SELFPAY ==
--- NOTE | 2025-01-11 09:22 | A.OFFPC_ITS ---
Vital Signs 01/11/25 09:31 Height 5 ft 10 in Weight 122 lb 8 oz BMI 17.6 BP 133/71 Blood Pressure Location Rt brachial Position Sitting Respiration 16 Pulse 70 Pulse Source Pulse Oximeter Temp 98.4 F Temp Source Oral Pulse Oximetry (%) 99 Oxygen Delivery Method Room Air Intake Visit Reasons: ptx left Intake Note: patient here for follow up on lung surgery at [facility] Chart Reader Required: No Allergies No Known Allergies Allergy (Verified 01/11/25 10:02) Medication List - Last Reconciled 01/11/25 by Concetta Chirinos CNP No Known Home Meds Tobacco use date assessed: 01/11/25 Dental Screening Dental Screen Date: 01/11/25 Did you have a dental visit in the last 12 months?: No Did you have a dental problem in the last 6 months where you did not have access to dental care?: No Was dental information given to patient?: Yes HPI HPI Comments History of Present Illness Details 19-year-old male presents for hospital d ischarge follow-up. He [place] [facility] [place] for sudden onset of left-sided chest pain with radiation to his left shoulder. X-ray revealed large left pneumothorax with complete collapse of the left lung. He was admitted to thoracic surgery same-day and had emergent left video-assisted thoracoscopic surgery. His condition improved and was discharged on 01/09/2025. X-ray on 01/08/2025 revealed continued improvement in left medium size pneumothorax. He notes that he has been doing well since discharged. He denies pain, malcolm rtness of breath, or difficulty breathing. He stopped smoking cigarettes and vaping. He requests a referral to pulmonology for follow-up. No acute symptoms at this time. He is out of work until late January. [facility] Medical History No known health problems Family History Mother Hypertension No family history of mental disorder Father No family history of mental disorder Diabetes Maternal Grandfather Lymphoma No family history of mental disorder Social History (Updated 01/09/25 @ 08:47 by BART Valladares) Household Members: Family Housing: House Do you presently have visiting nurse or other home services: No Comment: COUNTS CORRECT Patient Tobacco Use Status: Never used Tobacco e-Cigarette/Vaping Use: Former Use Second Hand Smoke Exposure: No Substance Use Type: Marijuana service: No Current occupational status: employed Current occupation: Construction Current occupational exposures/hazards: Yes Cognitive needs: No Hearing needs: No Vision needs: No Questionnaire PHQ-9 Over the last 2 weeks, how often have you been bothered by any of the following problems? 1. Little interest or pleasure in doing things: not at all 2. Feeling down, depressed, or hopeless: not at all 3. Trouble falling or staying asleep, or sleeping too much: several days 4. Feeling tired or having little energy: several days 5. Poor appetite or overeating: several days 6. Feeling bad about yourself - or that you are a failure or have let yourself or your family down: several days 7. Trouble concentrating on things, such as reading the newspaper or watching television: not at all 8. Moving or speaking so slowly that other people could have noticed. Or the opposite - being so fidgety or restless that you have been moving around a lot more than usual: not at all 9. Thoughts that you would be better off or of hurting yourself in some way: not at all Total score: 4 Depression Screening Interpretation: Negative Depression Screening Done: Yes Source: Developed by Drs. Tone Hernandez, Kandis Chung, Genaro Darling and colleagues, with an educational cholo from [employer]. Thrive Questionnaire Date Thrive assessed: 12/31/24 I am a: Patient What is your living situation today?: I have a steady place to live Within the past 12 months, did the food you bought not last and you didn't have the money to get more?: Never true Within the past 12 months, did you worry whether your food would run out before you got money to buy more?: Never true Do you have trouble paying for medicines?: No Do you have trouble getting transportation to medical appointments?: No Do you have trouble paying your heating and electricity bill?: No Do you have trouble taking care of your child, family member or friend?: No Do you have trouble with day-to-day activities such as bathing, preparing meals, shopping, managing finances, etc.?: No Are you currently unemployed and looking for a job?: No Are you interested in more education?: Yes Please select the resources that you would like help with: None Currently or been in a relationship where the following occur: No concerns reported THRIVE Score: 0 AUDIT C Alcohol Use Questionnaire (AUDIT-C) 1. How often do you have a drink containing alcohol?: Never Total Score: 0 ZEYAD-7 AMB Questionnaire ZEYAD-7 Date ZEYAD - 7 assessed: 01/17/23 Feeling nervous, anxious, or on edge: 1 = Several days Not being able to stop or control worryin = Not at all Worrying too much about different things: 0 = Not at all Trouble relaxin = Several days Being so restless that it is hard to sit still: 0 = Not at all Becoming easily annoyed or irritable: 0 = Not at all Feeling afraid as if something awful might happen: 0 = Not at all Total ZEYAD-7 score (0-4 normal; 5-9 mild; 10-14 moderate; 15-21 severe): 2 Source: Developed by Drs. Tone Hernandez, Kandis Chugn, Genaro Darling and colleagues, with an educational cholo from [employer]. Review of Systems Const Details: Const Denies chills, Denies fatigue, Denies fever(s), Denies headache(s) and Denies weakness ENT Denies dizziness and Denies headache(s) Card Denies chest pain, Denies lightheadedness, Denies dyspnea and Denies other (Palpitations) Resp Denies cough, Denies dyspnea, Denies wheezing and Denies other ( shortness of breath) GI Denies abdominal pain, Denies melena, Denies hematochezia, Denies change in bowel habits, Denies dyspepsia and Denies nausea Denies hematuria and Denies dysuria Musc Denies abnormal gait, Denies myalgias, Denies arthralgias, Denies numbness and D enies tingling Skin/Breast Denies rash, Denies unusual bruising and Denies wounds Neuro Denies abnormal gait, Denies dizziness, Denies headache(s), Denies memory loss, Denies numbness, Denies Sensory deficit (Neuro), Denies tingling and Denies weakness Psych Denies anxiety, Denies depression, Denies memory loss Endo Denies cold intolerance, Denies fatigue, Denies heat intolerance, Denies polydipsia and Denies polyuria Aller/Immun Denies wheezing Physical exam (Primary Care) Vital Signs: Last Vital Signs Temp 98.4 F 01/11/25 09:31 Pulse 70 01/11/25 09:31 Resp 16 01/11/25 09:31 BP 133/71 01/11/25 09:31 Pulse Ox 99 01/11/25 09:31 Oxygen Delivery Method Room Air 01/11/25 09:31 BMI result Body Mass Index 17.6 Tobacco/Smoking Status: Tobacco use Status Tobacco use date assessed 01/11/25 01/11/25 09:34 Patient Tobacco Use Status Never used Tobacco 01/11/25 09:23 Tobacco use type 01/09/25 10:02 e-Cigarette/Vaping Use Former Use 01/11/25 09:34 PHQ-9: PHQ-9 Score PHQ-9: Total score 4 01/11/25 09:23 Depression Screening Interpretation: Negative Thrive Assessment: Date of Thrive Assessment Date Thrive assessed 12/31/24 01/11/25 09:23 Currently or been in a relationship where the following occur: No concerns reported Const Other: General: no acute distress and well developed Nutritional Appearance: well nourished Orientation/consciousness: patient oriented x3 HENMT Head: Yes normocephalic and Yes atraumatic Eyes General: appearance normal, both eyes and all related structures Pupils: Equal, round and reactive pupils present EOM: EOMs intact bilaterally Resp Effort & Inspection: normal respiratory effort Auscultation: clear to auscultation bilaterally Cardio Rate: regular rate Rhythm: regular rhythm Heart sounds: S1 normal heart sound present, S2 normal heart sound present, no gallops, no murmurs and no rubs GI Palpation (GI): No Abdominal aortic bruit present, Soft to palpation, nontender, No hepatosplenomegaly present and No Rebound tenderness present Auscultation: normal bowel sounds General: Yes no CVA tenderness Back/Spine/Pelvis Back: no CVA tenderness Cervical Spine: cervical ROM normal and No Cervical spine tenderness Thoracic/Lumbar Spine: thoraco-lumbar ROM normal, No pain with thoraco-lumbar ROM, No thoracic spinal tenderness and No lumbar spinal tenderness Extrem General: Yes normal to inspection, No edema and No calf tenderness Skin General: warm and dry. Normal skin color. Normal skin turgor Lesions: no lesions Rashes: no rashes Trauma: no lacerations or abrasions Wounds: Well-healed surgical incision to left chest and left upper back; no overt infection Nails: normal Neuro General: patient oriented x3, gait normal and no focal neuro deficit Cranial nerves: Yes Equal, round and reactive pupils present Cognition (Neuro): normal cognition Gait exam (Neuro): Normal gait present Sensory Exam: No Sensory deficit (Neuro) Psych Appearance: grossly normal Affect: normal affect Attitude: cooperative Thought process: Normal thought process present Coding Level of Care Code Est Pt Level 3 (76615) Diagnoses Status post pneumothorax Z Assessment & Plan Assessment & Plan (1) Status post pneumothorax: Code(s): Z87. - Personal history of other diseases of the respiratory system Category: Medical Plan: No acute symptoms. Well-healed surgical incision to left chest and left upper back; no overt infection. Follow-up as needed with thoracic surgery. Referred to pulmonology. Advised to fast for 10-12 hours, may drink water, and perform lab work 2-3 days before next visit. Follow-up for an extended physical exam. Verbalized understanding and agreed with the plan. Orders: Orders Glucose Fasting Today Z00.00 - Encounter for general adult medical examination without abnormal findings Lipid Panel Today Z00.00 - Encounter for general adult medical examination without abnormal findings Vitamin D 25-OH Total Today Z00.00 - Encounter for general adult medical examination without abnormal findings TSH reflex Free T4 Today Z00.00 - Encounter for general adult medical examination without abnormal findings WBC ONLY Today Z00.00 - Encounter for general adult medical examination without abnormal findings Referrals Pulmonology Referral Z87.09 - Personal history of other diseases of the respiratory system
[2025-01-11 09:31] VITALS: BP 133/71; PULSE 70; RESP 16; TEMP 36.9; O2SAT 99; BMI 17.6
--- OUTSIDE RECORDS SUMMARY | 2025-01-11 09:31 | XMS_ITS | Encounter Summary ---
Author Organization [facility] Address [address] [place] [address] Phone Care Team Providers Care Reporter Anchor Name Role Phone Quoc Thomas MD Primary Care Provider [phone] Encounter Details Date Type Department Care Team (Late st Contact Info) Description 02/03/2012 Documentation [facility] [place] [address] [place], [place] [id number] Family Medicine, Physician [address] [place], [place] [address] Social History Tobacco Use Types Packs/Day Years [...] on filedocumented in this encounter Care Teams Reporter Anchor Relationship Specialty Start Date End Date Quoc Thomas MD [address] [place] [address] [place] [address] PCP - General Pediatrics 05/18/18 11/15/23 documented as of this encounter
--- OUTSIDE RECORDS SUMMARY | 2025-01-11 09:31 | XMS_ITS | Encounter Summary ---
Author Organization [facility] Address [address] [place] [address] Phone Care Team Providers Care Rd Manager Name Role Phone Quoc Thomas MD Primary Care Provider [phone] Encounter Details Date Type Department Care Team (Late st Contact Info) Description 08/23/2016 Documentation [facility] [place] [facility] [address] [place], [place] [id number] Family Medicine, Physician [address] [place], [place] [address] Social History Tobacco Use Types Packs/Day Years [...] on filedocumented in this encounter Care Teams Rd Manager Relationship Specialty Start Date End Date Quoc Thomas MD [address] [place] [address] [place] [address] PCP - General Pediatrics 05/18/18 11/15/23 documented as of this encounter
--- OUTSIDE RECORDS SUMMARY | 2025-01-11 09:31 | XMS_ITS | Encounter Summary ---
Author Organization [facility] Address [address] [place] [address] Phone Care Team Providers Care Master Automotive Technician Name Role Phone Quoc Thomas MD Primary Care Provider [phone] Encounter Details Date Type Department Care Team (Late st Contact Info) Description 05/01/2015 Documentation [facility] [place] [facility] [address] [place], [place] [id number] Family Medicine, Physician [address] [place], [place] [address] Social History Tobacco Use Types Packs/Day Years [...] on filedocumented in this encounter Care Teams Master Automotive Technician Relationship Specialty Start Date End Date Quoc Thomas MD [address] [place] [address] [place] [address] PCP - General Pediatrics 05/18/18 11/15/23 documented as of this encounter
--- OUTSIDE RECORDS SUMMARY | 2025-01-11 09:31 | XMS_ITS | Encounter Summary ---
Author Organization [facility] Address [address] [place] [address] Phone Care Team Providers Care Skip Hoist Engineer Name Role Phone Quoc Thomas MD Primary Care Provider [phone] Encounter Details Date Type Department Care Team (Late st Contact Info) Description 05/01/2015 Documentation [facility] [place] Family [place] [address] [place], [place] [id number] Family Medicine, Physician [address] [place], [place] [address] Social History Tobacco Use Types Packs/Day Years [...] on filedocumented in this encounter Care Teams Skip Hoist Engineer Relationship Specialty Start Date End Date Quoc Thomas MD [address] [place] [address] [place] [address] PCP - General Pediatrics 05/18/18 11/15/23 documented as of this encounter
--- OUTSIDE RECORDS SUMMARY | 2025-01-11 09:31 | XMS_ITS | Encounter Summary ---
Author Organization [facility] Address [address] [place] [address] Phone Care Team Providers Care Fire Sprinkler Fitter Name Role Phone Quoc Thomas MD Primary Care Provider [phone] Encounter Details Date Type Department Care Team (Late st Contact Info) Description 08/23/[address] [facility] [place] Family [place] [address] [place], [place] [id number] Family Medicine, Physician [address] [place], [place] [address] Social History Tobacco Use Types Packs/Day Years [...] on filedocumented in this encounter Care Teams Fire Sprinkler Fitter Relationship Specialty Start Date End Date Quoc Thomas MD [address] [place] [address] [place] [address] PCP - General Pediatrics 05/18/18 11/15/23 documented as of this encounter
--- OUTSIDE RECORDS SUMMARY | 2025-01-11 09:31 | XMS_ITS | Encounter Summary ---
Author Organization [facility] Address [address] [place] [address] Phone Care Team Providers Care Permit Coordinator Name Role Phone Quoc Thomas MD Primary Care Provider [phone] Encounter Details Date Type Department Care Team (Late st Contact Info) Description 02/03/2012 Documentation [facility] [place] Family Medicine [address] [place], [place] [phone] Family Medicine, Physician [address] [place], [place] [address] Social History Tobacco Use Types Packs/Day Years [...] on filedocumented in this encounter Care Teams Permit Coordinator Relationship Specialty Start Date End Date Quoc Thomas MD [address] [place] [address] [place] [address] PCP - General Pediatrics 05/18/18 11/15/23 documented as of this encounter
--- OUTSIDE RECORDS SUMMARY | 2025-01-11 09:31 | XMS_ITS | Encounter Summary ---
Author Organization [facility] Address [address] [place] [address] Phone Care Team Providers Care Sports Equipment Repairer Name Role Phone Quoc Thomas MD Primary Care Provider [phone] Encounter Details Date Type Department Care Team (Late st Contact Info) Description 05/05/2017 Conversion Encounter [facility] [place] [address] [place] [address] Social History Tobacco Use Types Packs/Day Years [...] on filedocumented in this encounter Care Teams Sports Equipment Repairer Relationship Specialty Start Date End Date Quoc Thomas MD [address] [place] [address] PCP - General Pediatrics 05/18/18 11/15/23 documented as of this encounter
--- OUTSIDE RECORDS SUMMARY | 2025-01-11 09:31 | XMS_ITS | Encounter Summary ---
Author Organization [facility] Address [address] [place] [address] Phone Care Team Providers Care Ethylene Plant Helper Name Role Phone Quoc Thomas MD Primary Care Provider [phone] Encounter Details Date Type Department Care Team (Late st Contact Info) Description 02/03/2012 Documentation [facility] [place] [address] [place], [place] [phone] Family Medicine, Physician [address] [place], [place] [address] Social History Tobacco Use Types Packs/Day Years [...] on filedocumented in this encounter Care Teams Ethylene Plant Helper Relationship Specialty Start Date End Date Quoc Thomas MD [address] [place] [address] [place] [address] PCP - General Pediatrics 05/18/18 11/15/23 documented as of this encounter
--- OUTSIDE RECORDS SUMMARY | 2025-01-11 09:31 | XMS_ITS | Clinical Summary ---
Author Organization [facility] Address [address] [place] [address] Phone Care Team Providers Care Playground Equipment Erector Name Role Phone Unavailable Primary Care Provider [...] 08/20/2016 Meningococcal Vaccine Completed 12/03/2020, 016 Insurance [employer] [facility]
== END 2025-01-11 10:14 | disposition home or self-care (01) ==
LOC: HO.HMCFM 09:19
PROVIDERS: PCP Nurse Practitioner Family; Visit Provider Nurse Practitioner Family
DX: Z87.09 Personal history of other diseases of the respiratory system (principal)

== ENCOUNTER → 2025-01-11 09:19 | Outpatient (BNVA) | payer OTHER, SELFPAY | PROVIDERS: PCP Nurse Practitioner Family; Visit Provider Nurse Practitioner Family ==

== ENCOUNTER 2025-01-16 10:25 | Outpatient (REF) | payer OTHER, SELFPAY ==
--- NOTE | ~2025-01-16 | XR_ITS ---
CLINICAL HISTORY: Z87.09 - Personal history of other diseases of the respiratory system 2 view chest x-ray Comparison: None Findings: Interval removal of the left chest tube. There is a left apical pneumothorax which measures 3 cm between the pleural surfaces. There are adjacent chain sutures. Redemonstration of multiple clips projecting over the left lower lobe perihilar region. No acute consolidative changes. No pleural effusion. Heart size is normal. No acute fracture. IMPRESSION: Left apical pneumothorax is roughly 30 percent. No evidence for tension. This document has been electronically signed by: Maru Damon DO on 01/18/2025 14:17:55
--- OUTSIDE RECORDS SUMMARY | 2025-01-16 11:47 | XMS_ITS | Encounter Summary ---
Author Organization [facility] Address [address] [place] [address] Phone Care Team Providers Care Clean Energy Policy Analyst Name Role Phone Quoc Thomas MD Primary Care Provider [phone] Encounter Details Date Type Department Care Team (Late st Contact Info) Description 08/23/2016 Documentation [facility] [place] [address] [place] [address] Family Medicine, Physician [address] [place], [place] [address] Social History Tobacco Use Types Packs/Day Years [...] on filedocumented in this encounter Care Teams Clean Energy Policy Analyst Relationship Specialty Start Date End Date Quoc Thomas MD [address] [place] [address] [place] [address] PCP - General Pediatrics 05/18/18 11/15/23 documented as of this encounter
--- OUTSIDE RECORDS SUMMARY | 2025-01-16 11:47 | XMS_ITS | Encounter Summary ---
Author Organization [facility] Address [address] [place] [address] Phone Care Team Providers Care Senior Office Support Assistant Sosa Name Role Phone Quoc Thomas MD Primary Care Provider [phone] Encounter Details Date Type Department Care Team (Late st Contact Info) Description 05/01/2015 Documentation [facility] [place] Medicine [address] [place] [address] Family Medicine, Physician [address] [place], [place] [address] Social History Tobacco Use Types Packs/Day Years [...] on filedocumented in this encounter Care Teams Senior Office Support Assistant Sosa Relationship Specialty Start Date End Date Quoc Thomas MD [address] [place] [address] [place] [address] PCP - General Pediatrics 05/18/18 11/15/23 documented as of this encounter
--- OUTSIDE RECORDS SUMMARY | 2025-01-16 11:47 | XMS_ITS | Encounter Summary ---
Author Organization [facility] Address [address] [place] [address] Phone Care Team Providers Care Network Management Specialist Name Role Phone Quoc Thomas MD Primary Care Provider [phone] Encounter Details Date Type Department Care Team (Late st Contact Info) Description 05/01/2015 Documentation [facility] [place] Family Medicine [address] [place] [address] Family Medicine, Physician [address] [place], [place] [address] Social History Tobacco Use Types Packs/Day Years [...] on filedocumented in this encounter Care Teams Network Management Specialist Relationship Specialty Start Date End Date Quoc Thomas MD [address] [place] [address] [place] [address] PCP - General Pediatrics 05/18/18 11/15/23 documented as of this encounter
--- OUTSIDE RECORDS SUMMARY | 2025-01-16 11:47 | XMS_ITS | Encounter Summary ---
Author Organization [facility] Address [address] [place] [address] Phone Care Team Providers Care Insulation Technician Name Role Phone Quoc Thomas MD Primary Care Provider [phone] Encounter Details Date Type Department Care Team (Late st Contact Info) Description 08/23/2016 [place] [facility] [place] [address] [place] [address] Family Medicine, Physician [address] [place], [place] [address] Social History Tobacco Use Types Packs/Day Years [...] on filedocumented in this encounter Care Teams Insulation Technician Relationship Specialty Start Date End Date Quoc Thomas MD [address] [place] [address] [place] [address] PCP - General Pediatrics 05/18/18 11/15/23 documented as of this encounter
--- OUTSIDE RECORDS SUMMARY | 2025-01-16 11:47 | XMS_ITS | Clinical Summary ---
Author Organization [facility] Address [address] [place] [address] Phone Care Team Providers Care Clinical Cytogenetics Director Name Role Phone Unavailable Primary Care Provider [...] 08/20/2016 Meningococcal Vaccine Completed 12/03/2020, 016 Insurance [facility]
--- OUTSIDE RECORDS SUMMARY | 2025-01-16 11:47 | XMS_ITS | Encounter Summary ---
Author Organization [facility] Address [address] [place] [address] Phone Care Team Providers Care Assistant Construction Superintendent Name Role Phone Quoc Thomas MD Primary Care Provider [phone] Encounter Details Date Type Department Care Team (Late st Contact Info) Description 02/03/2012 Documentation [facility] [place] [address] [place], [place] [phone] Family Medicine, Physician [address] [place], [place] [address] Social History Tobacco Use Types Packs/Day Years [...] on filedocumented in this encounter Care Teams Assistant Construction Superintendent Relationship Specialty Start Date End Date Quoc Thomas MD [address] [place] [address] [place] [address] PCP - General Pediatrics 05/18/18 11/15/23 documented as of this encounter
--- OUTSIDE RECORDS SUMMARY | 2025-01-16 11:47 | XMS_ITS | Encounter Summary ---
Author Organization [facility] Address [address] [place] [address] Phone Care Team Providers Care Cryptographic Vulnerability Analyst Name Role Phone Quoc Thomas MD Primary Care Provider [phone] Encounter Details Date Type Department Care Team (Late st Contact Info) Description 02/03/2012 Documentation [facility] [place] [address] [place], [place] [phone] Family Medicine, Physician [address] [place], [place] [address] Social History Tobacco Use Types Packs/Day Years [...] on filedocumented in this encounter Care Teams Cryptographic Vulnerability Analyst Relationship Specialty Start Date End Date Quoc Thomas MD [address] [place] [address] [place] [address] PCP - General Pediatrics 05/18/18 11/15/23 documented as of this encounter
--- OUTSIDE RECORDS SUMMARY | 2025-01-16 11:47 | XMS_ITS | Encounter Summary ---
Author Organization [facility] Address [address] [place] [address] Phone Care Team Providers Care Community Support Associate Name Role Phone Quoc Thomas MD Primary Care Provider Encounter Details Date Type Department Care Team (Late st Contact Info) Description 05/05/2017 Conversion Encounter [facility] [place] [address] [place] [address] Social History Tobacco Use Types Packs/Day Years [...] on filedocumented in this encounter Care Teams Community Support Associate Relationship Specialty Start Date End Date Quoc Thomas MD [address] [place] [address] PCP - General Pediatrics 05/18/18 11/15/23 documented as of this encounter
--- OUTSIDE RECORDS SUMMARY | 2025-01-16 11:47 | XMS_ITS | Encounter Summary ---
Author Organization [facility] Address [address] [place] [address] Phone Care Team Providers Care Donor Services Coordinator Name Role Phone Quoc Thomas MD Primary Care Provider [phone] Encounter Details Date Type Department Care Team (Late st Contact Info) Description 02/03/2012 Documentation [facility] [place] Medicine [address] [place], [place] [address] Family Medicine, Physician [address] [place], [place] [address] Social History Tobacco Use Types Packs/Day Years [...] on filedocumented in this encounter Care Teams Donor Services Coordinator Relationship Specialty Start Date End Date Quoc Thomas MD [address] [place] [address] [place] [address] PCP - General Pediatrics 05/18/18 11/15/23 documented as of this encounter
== END 2025-01-16 10:26 | disposition home or self-care (01) ==
LOC: HO.XRAY 10:25
PROVIDERS: PCP Nurse Practitioner Family; Visit Provider Hospitalist
DX: Z87.09 Personal history of other diseases of the respiratory system (principal)
CPT/HCPCS: 71046

== ENCOUNTER → 2025-01-16 10:28 | Outpatient (BNV) | payer OTHER, SELFPAY | PROVIDERS: PCP Nurse Practitioner Family; Visit Provider Radiology Diagnostic Radiology | DX: J93.9 Pneumothorax, unspecified (principal) | CPT/HCPCS: 71046 ==

== ENCOUNTER 2025-01-16 10:37 | Outpatient (AMB) | payer OTHER, SELFPAY ==
[2025-01-16 10:41] VITALS: BP 114/68; PULSE 62; O2SAT 98; BMI 17.9
--- NOTE | 2025-01-16 10:41 | A.OFFVIS_ITS ---
Vital Signs 01/16/25 10:41 Height 5 ft 10 in Weight 124 lb 8.979 oz BMI 17.9 BP 114/68 Blood Pressure Location Rt brachial Position Sitting Pulse 62 Pulse Source Pulse Oximeter Pulse Oximetry (%) 98 Oxygen Delivery Method Room Air Intake Visit Reasons: Pneumothorax Allergies No Known Allergies Allergy (Verified 01/16/25 10:45) HPI Comments Details: The patient is here for pulmonary evaluation. The patient is a 19-year-old gentleman presenting after spontaneous pneumothorax. Apparently the patient was in her usual state health until a couple days prior to his ER admission when he started developing left-sided chest discomfort. Initially thought to be musculoskeletal because of his work. ultimately the symptoms became worse in the did the admission. His family evaluated him and noted that he was hypoxic and tachycardic. Therefore he was brought to the [facility] ER. Chest x-ray demonstrated a complete pneumothorax of his left lung. The patient was tachycardic suggesting early tension Pneumothorax. Thoracic surgery was consulted in a chest tube was placed anteriorly expanding his lungs in stabilizing his cardiovascular state. The patient is admitted to the hospital placed on suction water seal. He had a persistent leak. During the hospitalization he had a CT scan of the chest that I personally reviewed. His chest tube was in good placement. The patient did have areas of ground-glass opacities and consolidations in the left hemithorax. Likely related to the re-expansion although can not rule out pneumonitis and or infectious process. due to the persistent air leak surgery recommended undergoing video-assisted thoracoscopy with lobectomy and pleurodesis. The patient did have the procedure without any apparent complications and he was kept now is before few days afterwards. He did have a persistent leaking then the chest tube was able to remove once the leak stopped. Chest x-ray still demonstrated a moderate side pneumothorax likely due to non expansion of his left lung. Initially told he can go back on light duty but woke him to going light duty so he is currently under a temporary leave. The patient did have a chest x-ray today which I personally reviewed and compared to his previous chest x-rays postoperatively. It appears that the lung is expanding in the level of the pneumothorax is smaller about half way. Will continue to monitor closely. In view of his significant pneumonitis and pneumonia and persistent pneumothorax will go ahead and plan to repeat a CAT scan in 6 weeks in order to follow the area further. If the patient develops any worsening symptoms prior to that he will call for an earlier assessment I will have an x-ray available that he can have it any time if he starts developing any concerning symptoms. For now the patient is not smoking or vaping. No additional blood work at this time unless the areas of pneumonitis are still present. [facility] Medical History (Updated 01/16/25 @ 21:49 by Dharmesh Quinn MD) Pneumothorax ex vacuo Pneumonitis Lung blebs Spontaneous pneumothorax No known health problems Family History Mother Hypertension No family history of mental disorder Father No family history of mental disorder Diabetes Maternal Grandfather Lymphoma No family history of mental disorder Social History Household Members: Family Housing: House Do you presently have visiting nurse or other home services: No Comment: COUNTS CORRECT Patient Tobacco Use Status: Never used Tobacco e-Cigarette/Vaping Use: Former Use Second Hand Smoke Exposure: No Substance Use Type: Marijuana service: No Current occupational status: employed Current occupation: Construction Current occupational exposures/hazards: Yes Cognitive needs: No Hearing needs: No Vision needs: No Review of Systems Const Details: Const Denies chills, Denies fatigue, Denies fever(s), Denies headache(s) and Denies weakness ENT Denies dizziness and Denies headache(s) Card Denies chest pain, Denies lightheadedness, Denies dyspnea and Denies other (Palpitations) Resp Denies cough, Denies dyspnea, Denies wheezing and Denies other ( shortness of breath) GI Denies abdominal pain, Denies melena, Denies hematochezia, Denies change in bowel habits, Denies dyspepsia and Denies nausea Denies hematuria and Denies dysuria Musc Denies abnormal gait, Denies myalgias, Denies arthralgias, Denies numbness and Denies tingling Skin/Breast Denies rash, Denies unusual bruising and Denies wounds Neuro Denies abnormal gait, Denies dizziness, Denies headache(s), Denies memory loss, Denies numbness, Denies Sensory deficit (Neuro), Denies tingling and Denies weakness Psych Denies anxiety, Denies depression, Denies memory loss Endo Denies cold intolerance, Denies fatigue, Denies heat intolerance, Denies polydipsia and Denies polyuria Aller/Immun Denies wheezing Physical Exam Vital Signs: Last Vital Signs Pulse 62 01/16/25 10:41 BP 114/68 01/16/25 10:41 Pulse Ox 98 01/16/25 10:41 Oxygen Delivery Method Room Air 01/16/25 10:41 BMI result Body Mass Index 17.9 Const General: comfortable HEENT Head: Yes normocephalic Neck Neck: Yes normal visual inspection Chest Chest palpation & inspection: normal inspection of the chest Resp Effort & Inspection: normal respiratory effort Auscultation: clear to auscultation bilaterally Cardio Rate: regular rate Heart sounds: S1 normal heart sound present and S2 normal heart sound present GI Palpation (GI): Soft to palpation Skin General skin exam: no rashes or lesions noted Extrem General: Yes no clubbing, cyanosis or edema Assessment & Plan Assessment & Plan (1) Spontaneous pneumothorax: Code(s): J93.83 - Other pneumothorax Category: Medical (2) Lung blebs: Code(s): J43.9 - Emphysema, unspecified Category: Medical (3) Pneumonitis: Code(s): J98.4 - Other disorders of lung Category: Medical (4) Pneumothorax ex vacuo: Code(s): J93.83 - Other pneumothorax Category: Medical Plan CT chest in 6 weeks Avoid valsalva maneuvers CXR if any worsening symptoms F/U 2 months Orders: Orders XR chest 2V Today Z87.09 - Personal history of other diseases of the respiratory system Coding Level of Care Code New Pt Level 4 (93427) Diagnoses Spontaneous pneumothorax J93.83 Lung blebs J43.9 Pneumonitis J98.4 Pneumothorax ex vacuo J93.83 Time Spent (min) 40
== END 2025-01-16 11:08 | disposition home or self-care (01) ==
LOC: HO.HPS 10:37
PROVIDERS: PCP Nurse Practitioner Family; Referring Provider Nurse Practitioner Family; Visit Provider Hospitalist
DX: J93.83 Other pneumothorax (principal); J43.9 Emphysema, unspecified; J98.4 Other disorders of lung
CPT/HCPCS: 99204

== ENCOUNTER 2025-02-08 12:10 | Outpatient (AMB) | payer OTHER, SELFPAY ==
--- NOTE | 2025-02-08 12:13 | A.OFFPC_ITS ---
Vital Signs 02/08/25 12:23 Height 5 ft 10 in Weight 128 lb 6 oz BMI 18.4 BP 129/83 Blood Pressure Location Lt brachial Position Sitting Respiration 16 Pulse 64 Pulse Source Pulse Oximeter Temp 98.2 F Temp Source Oral Pulse Oximetry (%) 98 Oxygen Delivery Method Room Air Intake Visit Reasons: CPE Intake Note: patient here for CPE Weigher And Crusher Required: No Allergies No Known Allergies Allergy (Verified 02/08/25 12:39) Medication List - Last Reconciled 02/08/25 by Concetta Chirnios CNP No Known Home Meds Tobacco use date assessed: 02/08/25 Dental Screening Dental Screen Date: 02/08/25 Did you have a dental visit in the last 12 months?: No Did you have a dental problem in the last 6 months where you did not have access to dental care?: No Was dental information given to patient?: Yes HPI HPI Comments History of Present Illness Details 19-year-old male presents for an extende d physical exam. He stopped taking fluoxetine about a year ago because he felt like had no emotion on the medications. He has not been feeling depressed or anxious since he came of the medication. He did not do lab work as planned before this visit. Acute issue(s) - None Past Medical History - Myopia (wears prescription glasses), P neumothorax with VATS, anxiety, depression Social History - Nonsmoker. History of vaping. Drinks 1 can of seltzer twice yearly. Denies recreational drug use - Has been making healthy dietary choice s. Active but does not exercise; plans to start walking soon. Difficulty falling asleep but maintains sleep - He is sexually active, in a monogamous relationship, and has no concern for STDs Health maintenance - Last eye exam was a year ago with [facility]. Referred to ophthalmology for routine eye exam - Last dental visit was about a year ago ; encouraged to schedule an appointment with his dentist for routine dental care - Last Tdap was in 08/20/2016 - He notes that he is up-to-date on the flu vaccine [facility] Medical History Pneumothorax ex vacuo Pneumonitis Lung blebs Spontaneous pneumothorax No known health problems Family History Mother Hypertension No family history of mental disorder Father No family history of mental disorder Diabetes Maternal Grandfather Lymphoma No family history of mental disorder Social History Household Members: Family Housing: House Do you presently have visiting nurse or other home services: No Comment: COUNTS CORRECT Patient Tobacco Use Status: Never used Tobacco e-Cigarette/Vaping Use: Former Use Second Hand Smoke Exposure: No Substance Use Type: Marijuana service: No Current occupational status: employed Current occupation: Construction Current occupational exposures/hazards: Yes Cognitive needs: No Hearing needs: No Vision needs: No Questionnaire PHQ-9 Over the last 2 weeks, how often have you been bothered by any of the following problems? 1. Little interest or pleasure in doing things: not at all 2. Feeling down, depressed, or hopeless: not at all 3. Trouble falling or staying asleep, or sleeping too much: more than half the days 4. Feeling tired or having little energy: not at all 5. Poor appetite or overeating: not at all 6. Feeling bad about yourself - or that you are a failure or have let yourself or your family down: not at all 7. Trouble concentrating on things, such as reading the newspaper or watching television: not at all 8. Moving or speaking so slowly that other people could have noticed. Or the opp osite - being so fidgety or restless that you have been moving around a lot more than usual: several days 9. Thoughts that you would be better off or of hurting yourself in some way: not at all Total score: 3 Depression Screening Interpretation: Negative Depression Screening Done: Yes 76825 - PHQ-9 Billing: Yes Source: Developed by Drs. Tone Hernandez, Kandis Chung, Genaro Darling and colleagues, with an educational cholo from [employer]. Thrive Questionnaire Date Thrive assessed: 02/08/25 I am a: Patient What is your living situation today?: I have a steady place to live Within the past 12 months, did the food you bought not last and you didn't have the money to get more?: Never true Within the past 12 months, did you worry whether your food would run out before you got money to buy more?: Never true Do you have trouble paying for medicines?: No Do you have trouble getting transportation to medical appointments?: No Do you have trouble paying your heating and electricity bill?: No Do you have trouble taking care of your child, family member or friend?: No Do you have trouble with day-to-day activities such as bathing, preparing meals, shopping, managing finances, etc.?: No Are you currently unemployed and looking for a job?: No Are you interested in more education?: No Please select the resources that you would like help with: None Currently or been in a relationship where the following occur: No concerns reported THRIVE Score: 0 AUDIT C Alcohol Use Questionnaire (AUDIT-C) 1. How often do you have a drink containing alcohol?: Monthly or less 2. How many drinks containing alcohol do you have on a typical day when you are drinking?: 1 or 2 3. How often do you have six or more drinks on one occasion?: Never Total Score: 1 Score Reviewed/Action Taken: Yes ZEYAD-7 AMB Questionnaire ZEYAD-7 Date ZEYDA - 7 assessed: 02/08/25 Feeling nervous, anxious, or on edge: 1 = Several days Not being able to stop or control worryin = Not at all Worrying too much about different things: 0 = Not at all Trouble relaxin = Not at all Being so restless that it is hard to sit still: 0 = Not at all Becoming easily annoyed or irritable: 1 = Several days Feeling afraid as if something awful might happen: 0 = Not at all Total ZEYAD-7 score (0-4 normal; 5-9 mild; 10-14 moderate; 15-21 severe): 2 Source: Developed by Drs. Tone Hernandez, Kandis Chung, Genaro Darling and colleagues, with an educational cholo from [employer]. ZEYAD-7 Assessment Billing ZEYAD-7 Assessment Tool: ZEYAD-7 Assessment 99318 Review of Systems Const Details: Denies chills, Denies fatigue, Denies fever(s), Denies headache(s) and Denies weakness HEENT Denies change in vision, Denies dizziness, Denies headache(s), Denies hearing loss, Denies nasal congestion, Denies sinus pain, Denies sinus pressure and Denies sore throat Card Denies chest pain, Denies lightheadedness, Denies dyspnea and Denies other (palpitations) Resp Denies cough, Denies dyspnea and Denies wheezing GI Denies abdominal pain, Denies melena, Denies hematochezia, Denies change in bowel habits, Denies dyspepsia and Denies nausea Denies hematuria and Denies dysuria Musc Denies abnormal gait, Denies myalgias, Denies arthralgias, Denies numbness and Denies tingling Skin/Breast Denies rash, Denies unusual bruising and Denies wounds Neuro Denies abnormal gait, Denies dizziness, Denies headache(s), Denies memory loss, Denies numbness, Denies Sensory deficit (Neuro), Denies tingling and Denies weakness Psych Denies anxiety, Denies depression and Denies memory loss Endo Denies cold intolerance, Denies fatigue, Denies heat intolerance, Denies polydipsia and Denies polyuria Domingo/Lymph Denies easy bleeding and Denies easy bruising Aller/Immun Denies wheezing Physical exam (Primary Care) Vital Signs: Last Vital Signs Temp 98.2 F 02/08/25 12:23 Pulse 64 02/08/25 12:23 Resp 16 02/08/25 12:23 BP 129/83 02/08/25 12:23 Pulse Ox 98 02/08/25 12:23 Oxygen Delivery Method Room Air 02/08/25 12:23 BMI result Body Mass Index 18.4 Tobacco/Smoking Status: Tobacco use Status Tobacco use date assessed 02/08/25 02/08/25 12:28 Patient Tobacco Use Status Never used Tobacco 02/08/25 12:14 Tobacco use type 01/09/25 10:02 e-Cigarette/Vaping Use Former Use 02/08/25 12:14 PHQ-9: PHQ-9 Score PHQ-9: Total score 3 02/08/25 12:32 Depression Screening Interpretation: Negative Thrive Assessment: Date of Thrive Assessment Date Thrive assessed 02/08/25 02/08/25 12:17 Currently or been in a relationship where the following occur: No concerns reported Const Other: General: no acute distress, well developed, alert and awake Nutritional Appearance: well nourished Orientation/consciousness: patient oriented x3 HENMT Head: Yes normocephalic and Yes atraumatic Ears: hearing grossly normal bilaterally and TM's normal bilaterally General nose exam: Normal external nose present and Normal nares present Mouth: Normal oral and palatal mucosa present and moist mucous membranes Teeth and gingiva: dentition normal Throat: Yes oropharynx normal Eyes Pupils: Equal, round and reactive pupils present and Pupil accommodation reflex normal EOM: EOMs intact bilaterally Neck Neck: Yes normal visual inspection, Yes no lymphadenopathy and Yes trachea midline Thyroid: Thyroid normal Carotids: no bruits Lymphatic: no lymphadenopathy noted Chest Chest palpation & inspection: normal inspection of the chest Resp Effort & Inspection: normal respiratory effort Auscultation: clear to auscultation bilaterally Cardio Rate: regular rate Rhythm: regular rhythm Heart sounds: S1 normal heart sound present, S2 normal heart sound present, no gallops, no murmurs and no rubs Bruits: no abdominal aortic bruits and no carotid bruits GI Palpation (GI): No Abdominal aortic bruit present, Soft to palpation, nontender, No hepatosplenomegaly present and No Rebound tenderness present Auscultation: normal bowel sounds General: Yes no CVA tenderness Back/Spine/Pelvis Back: no CVA tenderness Cervical Spine: cervical ROM normal and No Cervical spine tenderness Thoracic/Lumbar Spine: thoraco-lumbar ROM normal, No pain with thoraco-lumbar ROM, No thoracic spinal tenderness and No lumbar spinal tenderness Skin General: warm and dry. Normal skin color. Normal skin turgor Lesions: no lesions Rashes: no rashes Trauma: no lacerations or abrasions Wounds: no wounds Nails: normal Neuro General: patient oriented x3, gait normal and CN's II-XI intact bilaterally Cranial nerves: Yes Equal, round and reactive pupils present Cognition (Neuro): normal cognition Gait exam (Neuro): Normal gait present Motor exam (neuro): 5/5 motor strength present throughout Sensory Exam: No Sensory deficit (Neuro) Deep tendon reflexes (DTR's): Right patellar reflex intensity grade: 2+ and Left patellar reflex intensity grade: 2+ Extrem General: Yes normal to inspection, No edema and No calf tenderness Psych Appearance: grossly normal Affect: normal affect Attitude: cooperative Thought process: Normal thought process present Coding Level of Care Code Est Pt Level 4 (24258) Est Pt Prev Care 18-39y(92566) Diagnoses Normal physical examination, routine Z00.00 Anxiety and depression F41.9; F32.A Leukocytosis D72.829 Elevated fasting glucose R73.01 Sleep disturbance G47.9 Myopia H52.10 Additional Codes ZEYAD-7 Assessment Billing - ZEYAD-7 Assessment Tool: ZEYAD-7 Assessment 98975 ([id number]) PHQ-9 - 08100 - PHQ-9 Billing: Yes ([id number]) Assessment & Plan Assessment & Plan (1) Normal physical examination, routine: Code(s): Z00.00 - Encounter for general adult medical examination without abnormal fin dings Category: Medical Plan: No significant functional limitation noted. Healthy diet and routine exercise encouraged. Advised to perform lab work before his next visit. Follow-up for telehealth visit in 2-3 weeks for labs review. Return sooner with symptoms or concerns. Verbalized understanding and agreed with treatment plan. (2) Anxiety and depression: Code(s): F41.9 - Anxiety disorder, unspecified; F32.A - Depression, unspecified Category: Medical Plan: He stopped taking fluoxetine about a year ago because he felt like had no emotion on the medications. He has not been feeling depressed or anxious since he came of the medication. PHQ-9 and ZEYAD-7 scores are normal. Routine exercise encouraged. Follow up as needed. Verbalized understanding and agreed with the plan. (3) Leukocytosis: Code(s): D72.829 - Elevated white blood cell count, unspecified Category: Medical Plan: Recent WBC is slightly elevated, 13.7, likely due to acute pneumothorax which resolved after VATS. Will recheck WBC. (4) Elevated fasting glucose: Code(s): R73.01 - Impaired fasting glucose Category: Medical Plan: Recent fasting glucose is slightly elevated, 103. Will recheck fasting glucose. (5) Sleep disturbance: Code(s): G47.9 - Sleep disorder, unspecified Category: Medical Plan: He reports difficulty falling asleep but maintains sleep. Instructed on sleep hygiene. Routine exercise encouraged. May take melatonin as needed. Follow up as needed. Verbalized understanding and agreed with the plan. (6) Myopia: Code(s): H52.10 - Myopia, unspecified eye Category: Medical Plan: He wears prescription glasses. His last eye exam was a year ago with [facility]. Referred to ophthalmology for routine eye exam. Orders: Orders Microalbumin, Random (w Creat) Today Z00.00 - Encounter for general adult medical examination without abnormal findings UA CC w/rflx Micro + Cult Today Z00.00 - Encounter for general adult medical examination without abnormal findings Referrals Ophthalmology Referral H52.10 - Myopia, unspecified eye
--- OUTSIDE RECORDS SUMMARY | 2025-02-08 12:13 | XMS_ITS | Encounter Summary ---
Author Organization [facility] Address [address] [place] [address] Phone Care Team Providers Care Vacuum Closing Machine Operator Name Role Phone Quoc Thomas MD Primary Care Provider Encounter Details Date Type Department Care Team (Late st Contact Info) Description 05/01/2015 Documentation [facility] [place] Family Medicine [address] [place], [place] [phone] Family Medicine, Physician [address] [place], [place] [address] Social History Tobacco Use Types Packs/Day Years [...] on filedocumented in this encounter Care Teams Vacuum Closing Machine Operator Relationship Specialty Start Date End Date Quoc Thomas MD [address] [place] [address] [place] [address] PCP - General Pediatrics 05/18/18 11/15/23 documented as of this encounter
[2025-02-08 12:23] VITALS: BP 129/83; PULSE 64; RESP 16; TEMP 36.8; O2SAT 98; BMI 18.4
== END 2025-02-08 12:55 | disposition home or self-care (01) ==
LOC: HO.HMCFM 12:11
PROVIDERS: PCP Nurse Practitioner Family; Visit Provider Nurse Practitioner Family
DX: Z00.00 Encounter for general adult medical examination without abnormal findings (principal); F41.9 Anxiety disorder, unspecified; F32.A Depression, unspecified; D72.829 Elevated white blood cell count, unspecified; R73.01 Impaired fasting glucose; G47.9 Sleep disorder, unspecified; H52.10 Myopia, unspecified eye

== ENCOUNTER → 2025-02-08 12:10 | Outpatient (BNVA) | payer OTHER, SELFPAY | PROVIDERS: PCP Nurse Practitioner Family; Visit Provider Nurse Practitioner Family | DX: Z00.00 Encounter for general adult medical examination without abnormal findings (principal); F41.9 Anxiety disorder, unspecified; F32.A Depression, unspecified; D72.829 Elevated white blood cell count, unspecified; R73.01 Impaired fasting glucose; G47.9 Sleep disorder, unspecified; H52.10 Myopia, unspecified eye; Z13.30 Encounter for screening examination for mental health and behavioral disorders, unspecified | CPT/HCPCS: 96127 ==

== ENCOUNTER 2025-02-26 06:25 | Outpatient (REF) | payer OTHER, SELFPAY ==
--- OUTSIDE RECORDS SUMMARY | 2025-02-26 06:27 | XMS_ITS | Encounter Summary ---
Author Organization [facility] Address [address] [place] [address] Phone Care Team Providers Care Belt Weaver Name Role Phone Quoc Thomas MD Primary Care Provider [phone] Encounter Details Date Type Department Care Team (Late st Contact Info) Description 05/01/2015 Documentation [facility] [place] Family Medicine [address] [place], [place] [id number] Family Medicine, Physician [address] [place], [place] [address] Social History Tobacco Use Types Packs/Day Years [...] on filedocumented in this encounter Care Teams Belt Weaver Relationship Specialty Start Date End Date Quoc Thomas MD [address] [place] [address] [place] [address] PCP - General Pediatrics 05/18/18 11/15/23 documented as of this encounter
[2025-02-26 07:18] LABS: Neutrophils Absolute Auto 3.4 x10*3/uL (2.0-8.3); White Blood Count 6.7 X10*3/uL (4.8-10.8)
[2025-02-26 07:48] LABS: Cholesterol 157 mg/dL (<200); Glucose Fasting 95 mg/dL (60-99); HDL Cholesterol 65 mg/dL (>40); LDL Cholesterol Calculated 82 mg/dL (<100); Triglycerides 53 mg/dL (<150)
[2025-02-26 08:08] LABS: TSH reflex Free T4 2.62 uIU/mL (0.32-4.0)
== END 2025-02-26 06:26 | disposition home or self-care (01) ==
LOC: HO.LAB 06:25
PROVIDERS: PCP Nurse Practitioner Family; Visit Provider Nurse Practitioner Family
DX: Z00.00 Encounter for general adult medical examination without abnormal findings (principal); Z13.6 Encounter for screening for cardiovascular disorders; Z13.1 Encounter for screening for diabetes mellitus
CPT/HCPCS: 36415; 80061; 82306; 82947; 84443; 85048

== ENCOUNTER 2025-03-01 09:03 | Outpatient (AMB) | payer OTHER, SELFPAY ==
--- NOTE | 2025-03-01 08:44 | A.OFFPC_ITS ---
Intake Visit Reasons: Telehealth 2-3 wks labs review Intake Note: patient here for telehealth follow up for labs Drop Hammer Setter Up Required: No Allergies No Known Allergies Allergy (Verified 03/01/25 09:03) Tobacco use date assessed: 03/01/25 Dental Screening Dental Screen Date: 03/01/25 Did you have a dental visit in the last 12 months?: No Did you have a dental problem in the last 6 months where you did not have access to dental care?: No Was dental information given to patient?: Patient has dentist HPI HPI Comments History of Present Illness Details 19-year-old [facility] of recent lab results. He offers no complaints and denies acute symptoms at this time. Did not get urinalysis and urine microalbumin lab work done. [facility] Medical History Pneumothorax ex vacuo Pneumonitis Lung blebs Spontaneous pneumothorax No known health problems Family History Mother Hypertension No family history of mental disorder Father No family history of mental disorder Diabetes Maternal Grandfather Lymphoma No family history of mental disorder Social History (Updated 03/01/25 @ 09:04 by Ayaka Turner MA) Household Members: Family Housing: House Do you presently have visiting nurse or other home services: No Alcohol intake: never Comment: COUNTS CORRECT Patient Tobacco Use Status: Never used Tobacco e-Cigarette/Vaping Use: Former Use Second Hand Smoke Exposure: No Use of substances other than those prescribed or required for medical reasons: Yes Substance Use Type: Marijuana service: No Current occupational status: employed Current occupation: Construction Current occupational exposures/hazards: Yes Cognitive needs: No Hearing needs: No Vision needs: No Questionnaire Thrive Questionnaire Date Thrive assessed: 02/08/25 ZEYAD-7 AMB Questionnaire ZEYAD-7 Date ZEYAD - 7 assessed: 02/08/25 Source: Developed by Drs. Tone Hernandez, Kandis Chung, Genaro Darling and colleagues, with an educational cholo from [employer]. Review of Systems Const Details: Denies chills, Denies fatigue, Denies fever(s), Denies headache(s) and Denies weakness Cardiac Denies chest pain, Denies claudication, Denies leg edema, Denies lightheadedness, Denies palpitations, Denies dyspnea, Denies dyspnea on exertion, Denies orthopnea and Denies other (Loss of consciousness) Resp Denies cough, Denies excessive phlegm production, Denies dyspnea, Denies dyspnea on exertion, Denies snoring and Denies wheezing Physical exam (Primary Care) Tobacco/Smoking Status: Tobacco use Status Tobacco use date assessed 03/01/25 03/01/25 09:03 Patient Tobacco Use Status Never used Tobacco 03/01/25 09:04 Tobacco use type 01/09/25 10:02 e-Cigarette/Vaping Use Former Use 03/01/25 09:04 Thrive Assessment: Date of Thrive Assessment Date Thrive assessed 02/08/25 03/01/25 08:45 Const Other: Patient is allowed oriented x3 Telehealth Telehealth Telehealth Platform: Telephone Location of provider rendering services: practice address Location of patient: address on file Patient Identification confirmed using: Name, : Yes Telehealth method: voice only Patient verbally consented to treatment: Yes Patient verbally consented to billing insurance company: Yes Patient informed of any privacy concerns related to visit: Yes Coding Level of Care Code Tele Est Pt Level 3 (03704) Diagnoses Vitamin D deficiency E55.9 Time Spent (min) 10 Assessment & Plan Assessment & Plan (1) Vitamin D deficiency: Code(s): E55.9 - Vitamin D deficiency, unspecified Category: Medical Plan: Recent vitamin-D level is slightly low, 27.0. Lab results otherwise unremarkable. Vitamin D3 25 mcg daily ordered, advised to take as prescribed. Informed that the sun is a good source of vitamin D. Follow-up for an extended physical exam on/after 01/19/2026. Return sooner with symptoms or concerns. Verbalized understanding and agreed with treatment plan. Medications: New cholecalciferol (vitamin D3) 25 mcg PO DAILY 90 days 90 tabs 3RF
--- OUTSIDE RECORDS SUMMARY | 2025-03-01 09:26 | XMS_ITS | Encounter Summary ---
Author Organization [facility] Address [address] [place] [phone] Phone Care Team Providers Care Technology Teacher Name Role Phone Quoc Thomas MD Primary Care Provider Encounter Details Date Type Department Care Team (Late st Contact Info) Description 05/01/2015 Documentation [facility] [place] Family Medicine [address] [place], [place] [phone] Family Medicine, Physician [address] [place], [place] [address] Social History Tobacco Use Types Packs/Day Years [...] on filedocumented in this encounter Care Teams Technology Teacher Relationship Specialty Start Date End Date Quoc Thomas MD [address] [place] [address] [place] [address] PCP - General Pediatrics 05/18/18 11/15/23 documented as of this encounter
== END 2025-03-01 09:17 | disposition home or self-care (01) ==
LOC: HO.HMCFM 09:03
PROVIDERS: PCP Nurse Practitioner Family; Visit Provider Nurse Practitioner Family
DX: E55.9 Vitamin D deficiency, unspecified (principal)

== ENCOUNTER → 2025-03-01 09:03 | Outpatient (BNVA) | payer OTHER, SELFPAY | PROVIDERS: PCP Nurse Practitioner Family; Visit Provider Nurse Practitioner Family | DX: Z13.89 Encounter for screening for other disorder (principal) ==

== ENCOUNTER 2025-03-25 16:36 | Outpatient (REF) | payer OTHER, SELFPAY ==
--- NOTE | ~2025-03-25 | CT_ITS ---
EXAMINATION: CT CHEST WITHOUT CONTRAST CLINICAL INFORMATION: J93.83 - Other pneumothorax COMPARISON: Chest x-ray from today and January 16, 2025 TECHNIQUE: Multidetector volumetric CT imaging of the chest was done. Axial MIP volume rendering provided. Sagittal and coronal reformatted images were obtained. This CT examination was performed using dose optimization techniques as appropriate, variously including the following: *Automated exposure control *Adjustment of mA and/or kV according to patient size (this includes techniques or standardized protocols for targeted exams where dose is matched to indication/reason for exam; i.e. extremities or head) *Use of iterative reconstruction technique DLP: 129 mGY*cm FINDINGS: LUNGS: A suture line traversing the anterior left apex. Short curvilinear scarring is present in the posterior apex of the left upper lobe contacting the major fissure laterally. MEDIASTINUM: The mediastinum is unremarkable. Surgical clips are present, left midline, in the mid to lower anterior chest wall. CORONARY ARTERY CALCIFICATION: None visualized on this study. PLEURA: There is no pleural effusion. No pleural mass or thickening. AXILLA: No lymphadenopathy. UPPER ABDOMEN: Unremarkable. OSSEOUS STRUCTURES: Unremarkable. CT/CT chest wo IV con IMPRESSION: Unremarkable examination. No resolution of left pneumothorax. Fleischner guidelines were followed. Electronically signed by: Russell Michaels MD 03/25/2025 05:12 PM EDT
--- NOTE | ~2025-03-25 | XR_ITS ---
EXAMINATION: XR CHEST CLINICAL INFORMATION: J93.83 - Other pneumothorax COMPARISON: May 18, 2025 TECHNIQUE: 2 views of the chest were obtained. FINDINGS: Small left apical pneumothorax has resolved since the prior examination. Again seen are multiple surgical kira in the anterior left chest wall and surgical suture line across the left apical lung.. No additional abnormalities are evident. XR/XR chest 2V IMPRESSION: Interval resolution of a left apical pneumothorax. Stable postsurgical changes. Electronically signed by: Russell Michaels MD 03/25/2025 05:03 PM EDT
--- OUTSIDE RECORDS SUMMARY | 2025-03-25 16:39 | XMS_ITS | Encounter Summary ---
Author Organization [facility] Address [address] [place] [address] Phone Care Team Providers Care Carpenter Helper Name Role Phone Quoc Thomas MD Primary Care Provider [phone] Encounter Details Date Type Department Care Team (Late st Contact Info) Description 05/01/2015 Documentation [facility] Family Medicine [address] [place] [address] Family Medicine, Physician [address] [place], [place] [address] Social History Tobacco Use Types Packs/Day Years [...] on filedocumented in this encounter Care Teams Carpenter Helper Relationship Specialty Start Date End Date Quoc Thomas MD [address] [place] [address] [place] [address] PCP - General Pediatrics 05/18/18 11/15/23 documented as of this encounter
== END 2025-03-25 16:37 | disposition home or self-care (01) ==
LOC: HO.CT 16:36
PROVIDERS: PCP Nurse Practitioner Family; Visit Provider Hospitalist
DX: J93.83 Other pneumothorax (principal); J98.4 Other disorders of lung; J43.9 Emphysema, unspecified
CPT/HCPCS: 71046; 71250

== ENCOUNTER → 2025-03-25 16:40 | Outpatient (BNV) | payer OTHER, SELFPAY | PROVIDERS: PCP Nurse Practitioner Family; Visit Provider Radiology Diagnostic Radiology | DX: J93.83 Other pneumothorax (principal) | CPT/HCPCS: 71046; 71250 ==

== ENCOUNTER 2025-04-15 15:44 | Outpatient (AMB) | payer OTHER, SELFPAY ==
[2025-04-15 15:47] VITALS: BP 96/50; PULSE 63; O2SAT 97; BMI 19.3
--- NOTE | 2025-04-15 15:47 | MHC.OFFVIS ---
Vital Signs 04/15/25 15:47 Height 5 ft 10 in Weight 134 lb 7.712 oz BMI 19.3 BP 96/50 L Blood Pressure Location Lt brachial Position Sitting Pulse 63 Pulse Source Pulse Oximeter Pulse Oximetry (%) 97 Oxygen Delivery Method Room Air Intake Visit Reasons: Pneumothorax/CT Follow Up Tire Inspector Required: No Accompanied by: Self / Same As Patient Allergies No Known Allergies Allergy (Verified 04/15/25 15:50) HPI Comments Details: The patient is a 20-year-old gentleman presenting after spontaneous pneumothorax. Apparently the patient was in her usual state health until a couple days prior to his ER admission when he started developing left-sided chest discomfort. Initially thought to be musculoskeletal because of his work. ultimately the symptoms became worse in the did the admission. His family evaluated him and noted that he was hypoxic and tachycardic. Therefore he was brought to the [facility] ER. Chest x-ray demonstrated a complete pneumothorax of his left lung. The patient was tachycardic suggesting early tension Pneumothorax. Thoracic surgery was consulted in a chest tube was placed anteriorly expanding his lungs in stabilizing his cardiovascular state. The patient is admitted to the hospital placed on suction water seal. He had a persistent leak. During the hospitalization he had a CT scan of the chest that I personally reviewed. His chest tube was in good placement. The patient did have areas of ground-glass opacities and consolidations in the left hemithorax. Likely related to the re-expansion although can not rule out pneumonitis and or infectious process. due to the persistent air leak surgery recommended undergoing video-assisted thoracoscopy with lobectomy and pleurodesis. The patient did have the procedure without any apparent complications and he was kept now is before few days afterwards. He did have a persistent leaking then the chest tube was able to remove once the leak stopped. Chest x-ray still demonstrated a moderate side pneumothorax likely due to non expansion of his left lung. Initially told he can go back on light duty but woke him to going light duty so he is currently under a temporary leave. The patient did have a chest x-ray today which I personally reviewed and compared to his previous chest x-rays postoperatively. It appears that the lung is expanding in the level of the pneumothorax is smaller about half way. Will continue to monitor closely. In view of his significant pneumonitis and pneumonia and persistent pneumothorax will go ahead and plan to repeat a CAT scan in 6 weeks in order to follow the area further. If the patient develops any worsening symptoms prior to that he will call for an earlier assessment I will have an x-ray available that he can have it any time if he starts developing any concerning symptoms. For now the patient is not smoking or vaping. No additional blood work at this time unless the areas of pneumonitis are still present. 04/15/2025 the patient is here for pulmonary follow-up visit. Overall he is doing well. He is back to work full-time without any restrictions. He has not been vaping or any kind of smoke inhalation. The patient denies any shortness of breath. He does get intermittently some pleuritic chest pain. And also feels some numbness over the left nipple. Right below that area adjacent to it he did have a incision. Likely resulted in trauma or injury to the intercostal nerve causing the numbness in the pain. He also developed a little keloid or granulation tissue in that surgical site more than the others therefore likely resulted in increasing scarring and some pulling of the tissues in that area. But overall explained to him that this is normal in his recovery. We did talk about deep breathing exercises as part as if his treatment. Will plan to follow-up with a chest x-ray and pulmonary function studies in the springtime. If he develops any worsening symptoms he can always call. I also did offer him a Lidoderm patch that he can placed in the area if the symptoms worsen. Otherwise the patient is without any other complaints. [facility] Medical History Pneumothorax ex vacuo Pneumonitis Lung blebs Spontaneous pneumothorax No known health problems Family History Mother Hypertension No family history of mental disorder Father No family history of mental disorder Diabetes Maternal Grandfather Lymphoma No family history of mental disorder Social History Household Members: Family Housing: House Do you presently have visiting nurse or other home services: No Alcohol intake: never Comment: COUNTS CORRECT Patient Tobacco Use Status: Never used Tobacco e-Cigarette/Vaping Use: Former Use Second Hand Smoke Exposure: No Substance Use Type: Marijuana service: No Current occupational status: employed Current occupation: Construction Current occupational exposures/hazards: Yes Cognitive needs: No Hearing needs: No Vision needs: No Review of Systems Const Denies fever(s) Eyes Reports no additional complaints ENT Reports no additional complaints Card Reports no additional complaints Resp Reports as per HPI, Reports pain on inspiration and Reports pain with cough GI Reports no additional complaints Musc Reports no additional complaints Skin/Breast Denies rash Neuro Reports no additional complaints Aller/Immun Reports no additional complaints Physical Exam Vital Signs: Last Vital Signs Pulse 63 04/15/25 15:47 BP 96/50 L 04/15/25 15:47 Pulse Ox 97 04/15/25 15:47 Oxygen Delivery Method Room Air 04/15/25 15:47 BMI result Body Mass Index 19.3 Const General: comfortable HEENT Head: Yes normocephalic Neck Neck: Yes normal visual inspection Chest Chest palpation & inspection: tenderness rib (surgical incision CDI, indurated with keloid and slight tender to the touch) Resp Effort & Inspection: normal respiratory effort Auscultation: clear to auscultation bilaterally Cardio Rate: regular rate Heart sounds: S1 normal heart sound present and S2 normal heart sound present GI Palpation (GI): Soft to palpation Skin General skin exam: no rashes or lesions noted Extrem General: Yes no clubbing, cyanosis or edema Assessment & Plan Assessment & Plan (1) Spontaneous pneumothorax: Code(s): J93.83 - Other pneumothorax Category: Medical (2) Lung blebs: Code(s): J43.9 - Emphysema, unspecified Category: Medical (3) Pneumonitis: Comment: resolved Code(s): J98.4 - Other disorders of lung Category: Medical (4) Pneumothorax ex vacuo: Code(s): J93.83 - Other pneumothorax Category: Medical Plan CXR in Spring 2025 PFTs in the Spring 2025 Avoid valsalva maneuvers CXR if any worsening symptoms F/U Spring 2025 Orders: Orders XR chest 2V 7 Months J43.9 - Emphysema, unspecified PFT pulmonary function test 7 Months J43.9 - Emphysema, unspecified Coding Level of Care Code Est Pt Level 4 (46271) Diagnoses Spontaneous pneumothorax J93.83 Lung blebs J43.9 Pneumonitis J98.4 Pneumothorax ex vacuo J93.83 Time Spent (min) 17
--- OUTSIDE RECORDS SUMMARY | 2025-04-15 15:59 | XMS_ITS | Encounter Summary ---
Author Organization [facility] Address [address] [place] [id number] Phone Care Team Providers Care Tree Doctor Name Role Phone Quoc Thomas MD Primary Care Provider [phone] Encounter Details Date Type Department Care Team (Late st Contact Info) Description 05/01/2015 Documentation [facility] [place] [facility] [address] [place] [address] Family Medicine, Physician [address] [place], [place] [address] Social History Tobacco Use Types Packs/Day Years [...] on filedocumented in this encounter Care Teams Tree Doctor Relationship Specialty Start Date End Date Quoc Thomas MD [address] [place] [address] [place] [id number] PCP - General Pediatrics 05/18/18 11/15/23 documented as of this encounter
== END 2025-04-15 16:09 | disposition home or self-care (01) ==
LOC: HO.HPS 15:45
PROVIDERS: PCP Nurse Practitioner Family; Visit Provider Hospitalist
DX: J93.83 Other pneumothorax (principal); J43.9 Emphysema, unspecified; J98.4 Other disorders of lung
CPT/HCPCS: 99214